=== PATIENT | male | born 2000 | race Caucasian/White ===

== ENCOUNTER 2021-02-05 11:47 | Emergency (ER) | payer OTHER, SELFPAY ==
--- NOTE | ~2021-02-05 | CT_ITS ---
EXAMINATION: CT ABDOMEN AND PELVIS WITH CONTRAST CLINICAL INFORMATION: Lower abdominal pain with urinary frequency. COMPARISON: CT abdomen and pelvis 03/17/2019. TECHNIQUE: Multidetector volumetric images were obtained from the superior aspect of the liver through the pubic symphysis following administration 85 mL of Omnipaque 350 intravenous contrast. Sagittal and coronal reformatted images were obtained on the technologist's workstation. Oral contrast: No This CT examination was performed using dose optimization techniques as appropriate, variously including the following: *Automated exposure control *Adjustment of mA and/or kV according to patient size (this includes techniques or standardized protocols for targeted exams where dose is matched to indication/reason for exam; i.e. extremities or head) *Use of iterative reconstruction technique DLP: 412 mGy-cm FINDINGS: LUNG BASES: The visualized lung bases are unremarkable. LIVER, GALLBLADDER, AND BILIARY TREE: The liver is normal in size, shape, and attenuation. No focal hepatic lesion or biliary ductal dilatation is present. The gallbladder is unremarkable with no evidence of radiopaque gallstones, gallbladder wall thickening, or obvious pericholecystic inflammatory changes. PANCREAS: Unremarkable. SPLEEN: Unremarkable. ADRENAL GLANDS: Unremarkable. KIDNEYS AND URETERS: The kidneys are normal in size, shape, and attenuation. No hydronephrosis, hydroureter, or calculi seen. No perinephric stranding. BLADDER: Unremarkable. GASTROINTESTINAL TRACT: There is large amount of stool seen throughout the entire colon consistent with significant constipation. There is no colonic or small bowel distention. Appendix is normal caliber. There is no free fluid or free air. ABDOMINAL WALL: No significant hernia is appreciated. LYMPH NODES: Normal. VASCULAR: Unremarkable. PELVIC VISCERA: No free air or free fluid seen. OSSEOUS STRUCTURES: Unremarkable. CT/CT abdomen pelvis w con IMPRESSION: No acute intra-abdominal process seen. Severe constipation. Normal appendix.
--- NOTE | ~2021-02-05 | US_ITS ---
EXAMINATION: US SCROTUM CLINICAL INFORMATION: Scrotal pain. Assess for torsion.. COMPARISON: CT abdomen and pelvis 02/05/2021 TECHNIQUE: A sonogram of the scrotum was performed assessing velez-scale appearance and color Doppler flow. Spectral Doppler analysis of the arterial and venous flow were performed in the testes bilaterally. FINDINGS: RIGHT: Right testicle measures 4.7 x 2.3 x 3.4 cm, volume 19.3 mL. No focal testicular parenchymal lesions are visualized. There is normal intratesticular color flow and low resistance waveform with presence of venous flow. No torsion. Right epididymal head is normal in size. There is trace fluid around the epididymal head. Otherwise, no hydrocele. No varicocele. Right epididymal Doppler flow is normal. LEFT: Left testicle measures 4.6 x 2.6 x 3.2 cm, volume 20.0 mL. No focal testicular parenchymal lesions are visualized. There is normal intratesticular color flow and low resistance waveform with presence of venous flow. No torsion. Left epididymal head is normal in size. No left hydrocele or varicocele is seen. Left epididymal Doppler flow is normal. US/US scrotum IMPRESSION: 1. No intratesticular mass or torsion. 2. Trace fluid near right epididymal head. No hyperemia. No overt hydrocele.
--- NOTE | ~2021-02-05 | US_ITS ---
EXAMINATION: US SCROTUM CLINICAL INFORMATION: Scrotal pain. Assess for torsion.. COMPARISON: CT abdomen and pelvis 02/05/2021 TECHNIQUE: A sonogram of the scrotum was performed assessing velez-scale appearance and color Doppler flow. Spectral Doppler analysis of the arterial and venous flow were performed in the testes bilaterally. FINDINGS: RIGHT: Right testicle measures 4.7 x 2.3 x 3.4 cm, volume 19.3 mL. No focal testicular parenchymal lesions are visualized. There is normal intratesticular color flow and low resistance waveform with presence of venous flow. No torsion. Right epididymal head is normal in size. There is trace fluid around the epididymal head. Otherwise, no hydrocele. No varicocele. Right epididymal Doppler flow is normal. LEFT: Left testicle measures 4.6 x 2.6 x 3.2 cm, volume 20.0 mL. No focal testicular parenchymal lesions are visualized. There is normal intratesticular color flow and low resistance waveform with presence of venous flow. No torsion. Left epididymal head is normal in size. No left hydrocele or varicocele is seen. Left epididymal Doppler flow is normal. US/US scrotum doppler IMPRESSION: 1. No intratesticular mass or torsion. 2. Trace fluid near right epididymal head. No hyperemia. No overt hydrocele.
[2021-02-05 11:58] VITALS: BP 128/54; PULSE 49; RESP 18; TEMP 36.7; O2SAT 99; BMI 24.3
[2021-02-05] MEDS: 0.9 % Sodium Chloride 1,000 ML 999 ML IVCONT (13:13)
[2021-02-05 13:18] LABS: MANUAL DIFF FLAG NO
[2021-02-05 13:19] LABS: Basophils Percent Auto 0.4 % (0-2); Eosinophils Absolute Auto 0.1 X10*3/uL (0.0-0.4); Eosinophils Percent Auto 0.9 % (0-4); Hematocrit 42.8 % (42-52); Hemoglobin 14.6 g/dl (14.0-18.0); Imm Gran Abs Auto 0.02 X10*3/uL (0.00-0.03); Imm Gran Pct Auto 0.3 % (0.0-0.4); Lymphocytes Absolute Auto 1.3 X10*3/uL (1.2-4.9); Mean Corpuscular HGB Conc 34.1 g/dl (31.0-36.0); Mean Corpuscular Hemoglobin 29.3 pg (27.0-33.0); Mean Corpuscular Volume 85.8 fL (80-98); Mean Platelet Volume 9.2 fL (9.4-12.4); Monocytes Absolute Auto 0.6 X10*3/uL (0.1-1.2); Monocytes Percent Auto 7.3 % (2-11); Neutrophils Absolute Auto 5.8 X10*3/uL (2.0-8.3); Neutrophils Percent Auto 74.1 % (45-73); Platelet Count 266 X10*3/uL (160-400); Red Blood Count 4.99 X10*6/uL (4.60-5.80); Red Cell Distribution Width 12.6 % (11.0-16.0); White Blood Count 7.8 X10*3/uL (4.8-10.8)
[2021-02-05 13:25] LABS: INTERNATIONAL NORM RATIO 1.1 (0.9-1.1); Prothrombin Time 12.5 SEC (9.9-13.0)
[2021-02-05 13:26] LABS: Appearance Urine CLEAR; Color Urine YELLOW; Glucose Urine UA NEG (NEG); Leukocyte Esterase Urine NEG (NEG); Nitrite Urine NEG (NEG); Urine Blood NEG (NEG); Urine Ketones NEG (NEG); Urine Protein NEG (NEG-TRACE)
[2021-02-05 13:39] LABS: Influenza A PCR NEGATIVE (Negative); Influenza B PCR NEGATIVE (Negative); Resp Syncy Virus RNA Qual PCR NEGATIVE (Negative); SARS COV2 PCR INHOUSE NEGATIVE (Negative)
[2021-02-05 13:46] LABS: Alanine Aminotransferase 20 U/L (0-40); Albumin Level 5.1 g/dL (3.5-5.0); Alkaline Phosphatase 67 U/L (39-117); Anion Gap 12 (12-20); Aspartate Amino Transferase 21 U/L (5-37); Bilirubin Total 2.5 mg/dL (0.0-1.0); Blood Urea Nitrogen 14 mg/dL (9-16); Carbon Dioxide 28 mmol/L (22-29); Chloride 102 mmol/L (96-108); Creatinine Clr Calc Pharmacy 90.4; Estimated Glomerular Filt Rate > 60; Glucose Random 95 mg/dL (60-115); Magnesium 2.1 mg/dL (1.6-2.6); Potassium 4.3 mmol/L (3.3-5.1); Sodium 138 mmol/L (135-145)
[2021-02-05] MEDS: iohexoL 350 MG/ML 100 ML INFUS..BTL IV (13:59)
[2021-02-05 14:00] VITALS: PULSE 69; RESP 19; TEMP 36.7; O2SAT 99
--- NOTE | 2021-02-05 15:33 | ED_ITS ---
HPI - Male Genitourinary General Chief complaint: Urogenital-Male Stated complaint: urinary problem Time Seen by Provider: 02/05/21 12:35 Source: patient Mode of arrival: ambulatory Limitations: no limitations History of Present Illness HPI Narrative: 20-year-old male with no significant past medical history present ing with his mother at bedside who is the RN here in the ER with complaints of increased urinary frequency/urgency with pressure sensation/bladder spasming for the past week although improving per the patient. He reports he feels pressure in the prostate/colon area. He reports he thinks he had 1 episode of hematuria although has resolved. He reports that this pressure/pain is so intense when it comes on that he has been unable to go to his classes. He gets associated diaphoresis when the pressure is there. His mother flew him back out from [place] to be further evaluated as he was seen in his college by the Urgent Care and only had a UA which was negative and gonorrhea chlamydia swab which was negative per the patient and mother. He denies any thoughts of STDs. Mother also reports that he started with a dry cough. Requesting to be tested for COVID. Patient denies any fevers, chills, dizziness, headaches, neck pain, chest pain or shortness of breath, back pain, diarrhea, dysuria, abnormal penile discharge, rashes, penile lesions or any other symptoms complaints or concerns at this time. Denies any sick contacts that he is aware of. Mother is significant for breast cancer in remission. Grandfather also had a cancer. Related Data Previous Rx's Medication Instructions Recorded docusate sodium 100 mg capsule 100 mg PO BID PRN #30 cap 02/05/21 (Colace) sennosides 8.6 mg tablet (Senna 8.6 mg PO BID PRN #30 tab 02/05/21 Laxative) Allergies Allergy/AdvReac Type Severity Reaction Status Date / Time No Known Allergies Allergy Verified 02/05/21 11:57 [No Known Allergies*] Review of Systems Review of Systems: Constitutional : No Weight loss, No Fever, No Chills, No Night Sweats, No Fatigue, NoMalaise ENT/Mouth: No ear pain, No sore throat, No Difficulty swallowing Cardiovascular : No Chest Pain, No SOB, No Dyspnea on Exertion, No Orthopnea, NoEdema, No Palpitations Respiratory : No Cough, No Sputum, No Wheezing, No Dyspnea Gastrointestinal : Positive abdominal pain, No Nausea, No Vomiting, No Diarrhea, No blood streaked emesis, No coffee-ground emesis, No gross he matemesis, No blood streak stool, No gross hematochezia, No Melena Genitourinary :Positive urinary frequency/urgency and 1 episode of hematuria, No irregular bleeding, No Dysuria, No Urinary Incontinence, No Flank Pain Musculoskeletal : No joint pain, No Myalgias, No Joint Swelling Skin : No Skin Lesions, No rash Neuro : No Weakness, No Numbness, No Paresthesias, No Loss of Consciousness, NoDizziness, No Headache Psych : No Social Issues, Heme/Lymph: No Bruising, No Bleeding,No Lymphadenopathy Endocrine : No Polyuria, No Polydipsia, No Temperature Intolerance Yes all other systems are reviewed and are negative [facility] Past Medical History Attestation statement: The following information was validated with the patient. Medical History Acute gastroenteritis Social History Social History Advance Directives: No Advance Directives Information Provided: No Physical Exam Vital Signs: Vital Signs: Last Vital Signs Temp 98.0 F 02/05/21 14:00 Pulse 69 02/05/21 14:00 Resp 19 02/05/21 14:00 BP 128/54 L 02/05/21 11:58 Pulse Ox 99 02/05/21 14:00 Body Mass Index 24.3 vital signs have been reviewed as normal and appeared to be correct. Blood pressure hypotensive at 120/54. Heart rate bradycardic at 49. Respiration rate normal. Temperature normal. Oxygen saturation normal. Appearance: Alert. Oriented X3. No acute distress. Head: Normal external exam. Normocephalic. Eyes: PERRLA. EOMI. Conjunctiva and sclera normal. Eyelids normal. ENT: Pharynx normal. Uvula midline. Moist mucous membranes. Neck: Normal inspection. Neck supple. FROM. No adenopathy. No meningeal signs. CVS: Normal heart rate and rhythm. Heart sound normal. No murmurs noted. Pulses normal throughout. Respiratory: No respiratory distress. Painless inspiration. Breath sounds normal. No wheezes/rales/rhonchi noted. Chest nontender. No accessory muscle usage noted or decreased air movement noted. Abdomen: Soft and mild tenderness up patient to suprapubic area. Nondistended. No guarding. No rigidity. Bowel sounds normal in all 4 quadrants. No distention noted. No organomegaly noted. No visible injury noted. No rebound tenderness. Negative Rovsing sign. Negative obturator's sign. Negative psoas sign. Negative Sullivan sign. Back: No CVA tenderness. Full range of motion noted. Skin: Skin warm and dry. Normal skin color. Normal skin turgor. No rashes/lesions/lacerations noted. Extremities: Extremities exhibit normal range of motion. Extremities nontender. Neuro: Oriented X 3. No motor deficit. No sensory deficit. Reflexes normal. Normal steady gait. Course Course Course Narrative: 20-year-old male with no significant past medical history presenting with his mother at bedside who is the RN here in the ER with complaints of increased urinary frequency/urgency with pressure sensation/bladder spasming for the past week although improving per the patient. He reports he feels pressure in the prostate/colon area. He reports he thinks he had 1 episode of hematuria although has resolved. He reports that this pressure/pain is so intense when it comes on that he has been unable to go to his classes. He gets associated diaphoresis when the pressure is there. His mother flew him back out from [place] to be further evaluated as he was seen in his college by the Urgent Care and only had a UA which was negative and gonorrhea chlamydia swab which was negative per the patient and mother. He denies any thoughts of STDs. Mother also reports that he started with a dry cough. Requesting to be tested for COVID. Labs obtained and patient noted to have an elevated total bilirubin at 2.5 and it appears that the patient has had this chronically since 2019. Albumin 5.1. Otherwise all other labs are within normal limits. UA within normal limits. Patient negative for COVID/RSV/flu. I added a hepatitis panel which is pending at this time patient will need to be called back with these results. Ultrasound revealed trace fluid near right epididymal head otherwise no other acute processes were noted. CT scan abdomen and pelvis with IV contrast reveals severe constipation and a normal appendix otherwise no other acute processes. Therefore will DC home with symptomatic treatment for constipation along with instructions return if any new or worsening some and follow-up with primary care provider. Patient and mother at bedside understand and agree this plan. MDM - Male Genitourinary Medical Records Attestation: I reviewed the patient's medical records. Lab Data Attestation: I reviewed the patient's lab results. Result diagrams: 02/05/21 13:08 02/05/21 13:08 Labs: Lab Results 02/05/21 02/05/21 02/05/21 Range/Units 12:46 13:08 13:08 WBC 7.8 (4.8-10.8) X10*3/uL RBC 4.99 (4.60-5.80) X10*6/uL Hgb 14.6 (14.0-18.0) g/dl Hct 42.8 (42-52) % MCV 85.8 (80-98) fL MCH 29.3 (27.0-33.0) pg MCHC 34.1 (31.0-36.0) g/dl RDW 12.6 (11.0-16.0) % Plt Count 266 (160-400) X10*3/uL MPV 9.2 L (9.4-12.4) fL Immature Gran % (Auto) 0.3 (0.0-0.4) % Neut % (Auto) 74.1 H (45-73) % Lymph % (Auto) 17.0 L (20-40) % [place] % (Auto) 7.3 (2-11) % Eos % (Auto) 0.9 (0-4) % Baso % (Auto) 0.4 (0-2) % Lymph # (Auto) 1.3 (1.2-4.9) X10*3/uL [place] # (Auto) 0.6 (0.1-1.2) X10*3/uL Eos # (Auto) 0.1 (0.0-0.4) X10*3/uL Baso # (Auto) 0.0 (0.0-0.2) X10*3/uL Abs Immat Gran (auto) 0.02 (0.00-0.03) X10*3/uL Absolute Neuts (auto) 5.8 (2.0-8.3) X10*3/uL Absolute Nucleated RBC 0.000 (0.0-0.012) X10*3/uL Nucleated RBC % (auto) 0.0 (0.0-0.2) /100WBC PT 12.5 (9.9-13.0) SEC INR 1.1 (0.9-1.1) Sodium (135-145) mmol/L Potassium (3.3-5.1) mmol/L Chloride (96-108) mmol/L Carbon Dioxide (22-29) mmol/L Anion Gap (12-20) BUN (9-16) mg/dL Creatinine (0.5-1.4) mg/dL Estim Creat Clear Calc Estimated GFR Random Glucose (60-115) mg/dL Calcium (8.4-10.2) mg/dL Magnesium (1.6-2.6) mg/dL Total Bilirubin (0.0-1.0) mg/dL AST (5-37) U/L ALT (0-40) U/L Alkaline Phosphatase (39-117) U/L Total Protein (6.5-8.0) g/dL Albumin (3.5-5.0) g/dL Urine Color Urine Appearance Urine pH (5.0-8.0) Ur Specific Girdler (1.005-1.025) Urine Protein (NEG-TRACE) MG/DL Urine Glucose (UA) (NEG) MG/DL Urine Ketones (NEG) MG/DL Urine Blood (NEG) Urine Nitrite (NEG) Ur Leukocyte Esterase (NEG) Coronavirus (PCR) NEGATIVE (Negative) Influenza Type A (PCR) NEGATIVE (Negative) Influenza Type B (PCR) NEGATIVE (Negative) RSV RNA Qual (PCR) NEGATIVE (Negative) 02/05/21 02/05/21 Range/Units 13:08 13:10 WBC (4.8-10.8) X10*3/uL RBC (4.60-5.80) X10*6/uL Hgb (14.0-18.0) g/dl Hct (42-52) % MCV (80-98) fL MCH (27.0-33.0) pg MCHC (31.0-36.0) g/dl RDW (11.0-16.0) % Plt Count (160-400) X10*3/uL MPV (9.4-12.4) fL Immature Gran % (Auto) (0.0-0.4) % Neut % (Auto) (45-73) % Lymph % (Auto) (20-40) % [place] % (Auto) (2-11) % Eos % (Auto) (0-4) % Baso % (Auto) (0-2) % Lymph # (Auto) (1.2-4.9) X10*3/uL [place] # (Auto) (0.1-1.2) X10*3/uL Eos # (Auto) (0.0-0.4) X10*3/uL Baso # (Auto) (0.0-0.2) X10*3/uL Abs Immat Gran (auto) (0.00-0.03) X10*3/uL Absolute Neuts (auto) (2.0-8.3) X10*3/uL Absolute Nucleated RBC (0.0-0.012) X10*3/uL Nucleated RBC % (auto) (0.0-0.2) /100WBC PT (9.9-13.0) SEC INR (0.9-1.1) Sodium 138 (135-145) mmol/L Potassium 4.3 (3.3-5.1) mmol/L Chloride 102 (96-108) mmol/L Carbon Dioxide 28 (22-29) mmol/L Anion Gap 12 (12-20) BUN 14 (9-16) mg/dL Creatinine 1.25 (0.5-1.4) mg/dL Estim Creat Clear Calc 90.4 Estimated GFR > 60 Random Glucose 95 (60-115) mg/dL Calcium 10.0 (8.4-10.2) mg/dL Magnesium 2.1 (1.6-2.6) mg/dL Total Bilirubin 2.5 H (0.0-1.0) mg/dL AST 21 (5-37) U/L ALT 20 (0-40) U/L Alkaline Phosphatase 67 (39-117) U/L Total Protein 8.0 (6.5-8.0) g/dL Albumin 5.1 H (3.5-5.0) g/dL Urine Color YELLOW Urine Appearance CLEAR Urine pH 6.0 (5.0-8.0) Ur Specific Girdler 1.020 (1.005-1.025) Urine Protein NEG (NEG-TRACE) MG/DL Urine Glucose (UA) NEG (NEG) MG/DL Urine Ketones NEG (NEG) MG/DL Urine Blood NEG (NEG) Urine Nitrite NEG (NEG) Ur Leukocyte Esterase NEG (NEG) Coronavirus (PCR) (Negative) Influenza Type A (PCR) (Negative) Influenza Type B (PCR) (Negative) RSV RNA Qual (PCR) (Negative) Imaging Data CT scan abdomen pelvis with IV contrast: Attestation: I personally reviewed and interpreted this imaging study as follows: Radiologist's impression: FINDINGS: LUNG BASES: The visualized lung bases are unremarkable.? LIVER, GALLBLADDER, AND BILIARY TREE: The liver is normal in size, shape, and attenuation. No focal hepatic lesion or biliary ductal dilatation is present. The gallbladder is unremarkable with no evidence of radiopaque gallstones, gallbladder wall thickening, or obvious pericholecystic inflammatory changes.? PANCREAS: Unremarkable.? SPLEEN: Unremarkable.? ADRENAL GLANDS: Unremarkable.? KIDNEYS AND URETERS: The kidneys are normal in size, shape, and attenuation. No hydronephrosis, hydroureter, or calculi seen. No perinephric stranding. ? BLADDER: Unremarkable.? GASTROINTESTINAL TRACT: There is large amount of stool seen throughout the entire colon consistent with significant constipation. There is no colonic or small bowel distention. Appendix is normal caliber. There is no free fluid or free air.? ABDOMINAL WALL: No significant hernia is appreciated.? LYMPH NODES: Normal. VASCULAR: Unremarkable. PELVIC VISCERA: No free air or free fluid seen.? OSSEOUS STRUCTURES: Unremarkable.? CT/CT abdomen pelvis w con IMPRESSION: No acute intra-abdominal process seen. ? Severe constipation. Normal appendix.? Scrotal/Doppler ultrasound: Attestation: I personally reviewed and interpreted this imaging study as follows: Radiologist's impression: FINDINGS: RIGHT: Right testicle measures 4.7 x 2.3 x 3.4 cm, volume 19.3 mL. No focal testicular parenchymal lesions are visualized. There is normal intratesticular color flow and low resistance waveform with presence of venous flow. No torsion. Right epididymal head is normal in size. There is trace fluid around the epididymal head. Otherwise, no hydrocele. No varicocele. Right epididymal Doppler flow is normal. LEFT: Left testicle measures 4.6 x 2.6 x 3.2 cm, volume 20.0 mL. No focal testicular parenchymal lesions are visualized. There is normal intratesticular color flow and low resistance waveform with presence of venous flow. No torsion. Left epididymal head is normal in size. No left hydrocele or varicocele is seen. Left epididymal Doppler flow is normal. US/US scrotum doppler IMPRESSION: ? 1. No intratesticular mass or torsion. 2. Trace fluid near right epididymal head. No hyperemia. No overt hydrocele. Critical Care Time Critical Care Time Critical Care Time: Yes Total Critical Care Time: 60 Attestation: I personally attest to this time spent taking care of the patient Discharge Plan Discharge Clinical Impression: Constipation Patient Disposition: Home, Self-Care Instructions: Constipation (ED) Prescriptions: New docusate sodium [Colace] 100 mg capsule 100 mg PO BID PRN (Reason: Constipation) Qty: 30 RF: 0 sennosides [Senna Laxative] 8.6 mg tablet 8.6 mg PO BID PRN (Reason: constipation) Qty: 30 RF: 0 Referrals: Juan Jose Parker MD [Primary Care Provider] - 2 days Riley Samson MD [Physician] - 2 days Hiram Oscar III, MD [Physician] - 2 days Stand Alone Forms: Work/School Release Interventions: ED Discharge Assessment Last Done: 02/05/21 15:43 Discharge Date/Time: 02/05/21 15:44 Print Language: Norwegian
[2021-02-05] MEDS: Magnesium Citrate 300 ML SOLUTION PO (15:35)
[2021-02-06 07:58] LABS: HBc Num1 0.09 S/CO (0.00-0.79); HBsAGNum1 0.28 S/CO (0.00-0.99); Hepatitis B Core Antibody Nonreactive (Nonreactive); Hepatitis B Surface Antigen Negative (Negative); ~Hepatitis B Surface Antibody REACTIVE (Nonreactive)
[2021-02-06 08:02] LABS: ~HepC Num1 0.11 S/CO (0.00-0.79); ~Hepatitis A Antibody IgM Nonreactive (Nonreactive); ~Hepatitis C Antibody Nonreactive (Nonreactive)
== END 2021-02-05 15:44 | disposition home or self-care (01) ==
PROVIDERS: Physician Assistant Medical; Emergency Provider Emergency Medicine; PCP Pediatrics
DX: K59.00 Constipation, unspecified (principal); R35.0 Frequency of micturition; R10.2 Pelvic and perineal pain; Z20.822 Contact with and (suspected) exposure to COVID-19; Z79.899 Other long term (current) drug therapy
CPT/HCPCS: 0241U; 36415; 74177; 76870; 80053; 81003; 83735; 85025; 85610; 86704; 86706; 86709; 86803; 87340; 93975; 96360; 99284; 99291; Q9967

== ENCOUNTER 2022-04-13 19:13 | Emergency (ER) | payer OTHER, SELFPAY ==
--- NOTE | 2022-04-13 19:22 | ED_ITS ---
HPI - General Adult General Chief complaint: Urogenital-Male Stated complaint: unable to urinate Time Seen by Provider: 04/13/22 20:26 Source: patient and family (patient's mother) Mode of arrival: ambulatory Limitations: no limitations History of Present Illness HPI narrative: Patient is a 22 year old assigned male at with no reported medical history presenting to the emergency department today with urinary complaints. Patient states that he has been dealing with this issue on and off for years now and has yet to be able to get into a urologist. Patient states that when he hasn't had a bowel movement in awhile, he struggles to urinate fully. Patient states he will then have a bowel movement and be able to urinate but sometimes, even after the bowel movement, he cannot urinate. Patient states that more often than not, when he urinates, he still feels as though he needs to go even though he just went. Patient states that he constantly feels as though he has to push to urinate. Patient states that he was evaluated for this before and told that he had prostatitis and ibuprofen seems to resolve some of the inflammation type pain. Patient denies any dizziness, lightheadedness, abdominal pain, nausea, vomiting, fever, chills, blurry vision, double vision, loss of vision, chest pain, difficulty breathing, shortness of breath, back pain, night sweats, pain with urination, increased urinary frequency, increased urinary urgency, blood in his urine or stool, syncope or a near syncopal episode, recent trauma or falls, bowel incontinence, bladder incontinence, bowel retention, bladder retention, or any other complaints at this time. Onset (ago): year(s) Radiation: non-radiation Severity: mild Severity scale (1-10): 3 Quality: dull Pain Consistency: intermittent Relieving factors: none Exacerbating factors: none Associated symptoms: denies other symptoms Treatments prior to arrival: none Related Data Previous Rx's Medication Instructions Recorded docusate sodium 100 mg capsule 100 mg PO BID PRN Constipation #30 02/05/21 (Colace) caps sennosides 8.6 mg tablet (Senna 8.6 mg PO BID PRN constipation #30 02/05/21 Laxative) tabs ketorolac 10 mg tablet 10 mg PO Q8H PRN pain #30 tabs 04/13/22 oxybutynin chloride 5 mg 5 mg PO DAILY #30 tabs 04/13/22 tablet,extended release 24 hr Allergies Allergy/AdvReac Type Severity Reaction Status Date / Time No Known Allergies Allergy Verified 02/05/21 11:57 [No Known Allergies*] Review of Systems Constitutional: Constitutional: Reports no additional constitutional complaints, Denies chills, Denies fever(s) and Denies night sweats Eyes: Eyes: Reports no additional eye complaints, Denies blurry vision, Denies change in vision, Denies diplopia, Denies eye discharge, Denies loss of vision and Denies eye pain ENT: Denies dizziness Cardiovascular: Cardiovascular: Reports no additional cardiovascular complaints, Denies chest pain, Denies lightheadedness, Denies Loss of Consciousness and Denies dyspnea Respiratory: Respiratory: Reports no additional respiratory complaints and Denies dyspnea Gastrointestinal: Gastrointestinal: Reports no additional gastrointestinal complaints, Denies abdominal pain, Denies melena, Denies hematochezia, Denies change in bowel habits and Denies change in stool character Genitourinary: Genitourinary: Reports no additional male genitourinary complaints, Denies hematuria, Reports oliguria, Denies difficulty urinating, Denies dysuria, Reports urinary frequency, Denies urinary hesitancy, Denies urinary incontinence and Reports urinary urgency Musculoskeletal: Musculoskeletal: Reports no additional musculoskeletal complaints, Denies numbness and Denies tingling Neurologic: Denies dizziness, Denies loss of vision, Denies numbness and Denies tingling Psychiatric: Psychiatric: Reports no additional psychiatric complaints Endocrine: Endocrine: Reports no additional endocrine complaints Hematologic/Lymphatic: Hematologic/Lymphatic: Reports no additional hematologic/lymphatic complaints Allergic/Immunologic: Allergic/Immunologic: Reports no additional allergic/immunologic complaints [facility] Past Medical History Attestation statement: The following information was validated with the patient. Source: old records reviewed, obtained from family (patient's mother) and nursing notes reviewed Medical History Acute gastroenteritis Social History Social History Smoked in Last 30 Days: Yes Use of substances other than those prescribed or required for medical reasons: Yes Substance Use Type: Marijuana Advance Directives: No Advance Directives Information Provided: No Physical Exam ED Vital Signs: Vital Signs - 24 hr 04/13/22 19:23 04/13/22 20:07 Temperature 98.7 F Pulse Rate 60 50 Respiratory Rate 20 16 Blood Pressure 134/70 115/64 Pulse Oximetry 97 Oxygen Delivery Method Room Air Room Air BMI result Body Mass Index 24.5 Const General: cooperative, no acute distress, alert and awake Nutritional Appearance: well nourished Orientation/consciousness: patient oriented x3 Limitations: no limitations HENMT Head: Yes normal to inspection and Yes atraumatic Ears: hearing grossly normal bilaterally and external ears normal General nose exam: Normal external nose present, no nasal discharge noted and no epistaxis Face and sinus: Yes normal facial exam, No abrasion and No laceration Mouth: Normal oral and palatal mucosa present, no drooling and no muffled voice Eyes General: appearance normal, both eyes and all related structures Periorbital: periorbital findings normal Eyelids: Yes eyelids normal Conjunctivae: conjunctivae normal Pupils: Equal, round and reactive pupils present EOM: EOMs intact bilaterally Neck Neck: Yes normal visual inspection, Yes full ROM and Yes no lymphadenopathy Chest Chest palpation & inspection: normal inspection of the chest Resp Effort & Inspection: normal respiratory effort and able to speak in complete sentences Auscultation: clear to auscultation bilaterally Cardio Rate: regular rate Rhythm: regular rhythm GI Inspection: Yes normal to inspection Palpation (GI): Soft to palpation, not firm, nontender, no guarding and not rigid Neuro General: patient oriented x3 and moves all extremities Cranial nerves: Yes Equal, round and reactive pupils present Cognition (Neuro): normal cognition Motor exam (neuro): 5/5 motor strength present throughout Sensory Exam: Normal double simultaneous stimulation for sensation Coordination: [id number] test normal Extrem General: Yes normal to inspection, Yes full ROM and Yes capillary refill normal Psych Appearance: grossly normal Mental Status: mental status grossly normal Affect: normal affect Attitude: cooperative Thought process: Normal thought process present Thought content: Normal thought content present Insight: Good insight present (Psych) Medications Administered Discontinued Medications Generic Name Dose Route Start Last Admin Trade Name Freq PRN Reason Stop Dose Admin Ketorolac Tromethamine 15 mg 04/13/22 20:23 04/13/22 20:29 Ketorolac Tromethamine 15 Mg/Ml Vial IM 04/13/22 20:24 15 mg ONCE ONE Administration Oxybutynin Chloride 5 mg 04/13/22 20:23 12/18/22 20:29 Oxybutynin Chloride Er 5 Mg Tab.Er.24 PO 04/13/22 20:24 5 mg ONCE ONE Administration Medical Decision Making Medical Decision Making [facility] Narrative: Patient is a 22 year old assigned male at with no reported medical history presenting to the emergency department today with increased urinary urgency and increased urinary urgency. Patient's physical exam was unremarkable. Patient's blood work was unremarkable. Patient's urine showed no acute process. Patient's post void bladder scan showed 0ml. I explained my physical exam find ings as well as all test results to the patient and the patient's mother. I answered all questions asked by the patient and the patient's mother. Patient received oxybutynin and Toradol which he stated helped his discomfort significantly. I stressed the importance of the patient taking his medication as prescribed. I stressed the importance of the patient following up with his primary care provider and a urologist. I stressed the importance of the patient returning to the emergency department immediately if his symptoms were to worsen or if he were to develop any dizziness, shortness of breath, difficulty breathing, chest pain, blurry vision, loss of vision, nausea, vomiting, abdominal pain, fever, chills, back pain, or any other complaints. Patient and the patient's mother verbalized agreement and understanding with this treatment plan and discharge. Differential Diagnosis Differential Diagnoses: The differential diagnosis associated with the presentation includes bladder spasms, prostatitis Lab Data [facility] Lab Attestation statement: I reviewed the patient's lab results. Result Diagrams: 04/13/22 19:41 04/13/22 19:41 Labs: Lab Results 04/13/22 04/13/22 04/13/22 Range/Units 19:41 19:41 19:41 WBC 9.9 (4.8-10.8) X10*3/uL RBC 5.00 (4.60-5.80) X10*6/uL Hgb 14.1 (14.0-18.0) g/dl Hct 41.5 L (42.0-52.0) % MCV 83.0 (80.0-98.0) fL MCH 28.2 (27.0-33.0) pg MCHC 34.0 (31.0-36.0) g/dl RDW 12.6 (11.0-16.0) % Plt Count 311 (160-400) X10*3/uL MPV 8.9 L (9.4-12.4) fL Immature Gran % (Auto) 0.3 (0.0-0.4) % Neut % (Auto) 71.0 (45-73) % Lymph % (Auto) 20.4 (20-40) % [place] % (Auto) 6.6 (2-11) % Eos % (Auto) 1.0 (0-4) % Baso % (Auto) 0.7 (0-2) % Lymph # (Auto) 2.0 (1.2-4.9) X10*3/uL [place] # (Auto) 0.7 (0.1-1.2) X10*3/uL Eos # (Auto) 0.1 (0.0-0.4) X10*3/uL Baso # (Auto) 0.1 (0.0-0.2) X10*3/uL Abs Immat Gran (auto) 0.03 (0.00-0.03) X10*3/uL Absolute Neuts (auto) 7.0 (2.0-8.3) x10*3/uL Absolute Nucleated RBC 0.000 (0.0-0.012) X10*3/uL Nucleated RBC % (auto) 0.0 (0.0-0.2) /100WBC Sodium 137 (135-145) mmol/L Potassium 4.0 (3.3-5.1) mmol/L Chloride 104 (96-108) mmol/L Carbon Dioxide 24 (22-29) mmol/L Anion Gap 13 (12-20) BUN 13 (9-16) mg/dL Creatinine 1.02 (0.5-1.4) mg/dL Estim Creat Clear Calc 108.9 Estimated GFR > 60 Random Glucose 109 (60-115) mg/dL Calcium 9.4 (8.4-10.2) mg/dL Total Bilirubin 2.6 H (0.0-1.0) mg/dL AST 20 (5-37) U/L ALT 18 (0-40) U/L Alkaline Phosphatase 70 (39-117) U/L Total Protein 7.3 (6.5-8.0) g/dL Albumin 4.5 (3.5-5.0) g/dL Urine Color Yellow Urine Appearance Clear Urine pH 7.0 (5.0-9.0) Ur Specific [place] 1.025 (1.005-1.025) Urine Protein Negative (Neg-Trace) mg/dL Urine Glucose (UA) Negative (Negative) mg/dL Urine Ketones Negative (Negative) mg/dL Urine Blood Negative (Negative) Urine Nitrite Negative (Negative) Ur Leukocyte Esterase Negative (Negative) Discharge Plan Discharge Clinical Impression: Bladder spasm Patient Disposition: Home, Self-Care Additional Instructions: Follow up with your primary care provider and a urologist. Return to the emergency department immediately if your symptoms worsen or if you develop any dizziness, shortness of breath, difficulty breathing, chest pain, blurry vision, loss of vision, nausea, vomiting, abdominal pain, fever, chills, back pain, or any other complaints. Prescriptions: New oxybutynin chloride 5 mg tablet extended release 24hr 5 mg PO DAILY Qty: 30 0RF ketorolac 10 mg tablet 10 mg PO Q8H PRN (Reason: pain) Qty: 30 0RF No Action docusate sodium [Colace] 100 mg capsule 100 mg PO BID PRN (Reason: Constipation) Qty: 30 0RF sennosides [Senna Laxative] 8.6 mg tablet 8.6 mg PO BID PRN (Reason: constipation) Qty: 30 0RF Referrals: [facility] [place] [facility] [place] Group] (Call to establish and follow up with a primary care provider. If you already have a primary care provider, please follow up with them. ) [facility] [place] [facility] [[facility]] (Call to establish and follow up with a primary care provider. If you already have a primary care provider, please follow up with them. ) [facility] [place] [facility] [Provider Group] (Call to establish and follow up with a primary care provider. If you already have a primary care provider, please follow up with them. ) [facility] [place] [facility] [Provider Group] (Call to establish and follow up with a urologist. ) Interventions: ED Discharge Assessment Last Done: 04/13/22 20:36 Discharge Date/Time: 04/13/22 20:36 Print Language: Yi
[2022-04-13 19:23] VITALS: BP 134/70; PULSE 60; RESP 20; BMI 24.5
[2022-04-13 19:46] LABS: MANUAL DIFF FLAG NO
[2022-04-13 19:47] LABS: Basophils Absolute Auto 0.1 X10*3/uL (0.0-0.2); Basophils Percent Auto 0.7 % (0-2); Eosinophils Absolute Auto 0.1 X10*3/uL (0.0-0.4); Hematocrit 41.5 % (42.0-52.0); Hemoglobin 14.1 g/dl (14.0-18.0); Imm Gran Abs Auto 0.03 X10*3/uL (0.00-0.03); Imm Gran Pct Auto 0.3 % (0.0-0.4); Lymphocytes Percent Auto 20.4 % (20-40); Mean Corpuscular Hemoglobin 28.2 pg (27.0-33.0); Mean Platelet Volume 8.9 fL (9.4-12.4); Monocytes Absolute Auto 0.7 X10*3/uL (0.1-1.2); Monocytes Percent Auto 6.6 % (2-11); Platelet Count 311 X10*3/uL (160-400); Red Cell Distribution Width 12.6 % (11.0-16.0); White Blood Count 9.9 X10*3/uL (4.8-10.8)
[2022-04-13 19:49] LABS: Appearance Urine Clear; Color Urine Yellow; Glucose Urine UA Negative (Negative); Leukocyte Esterase Urine Negative (Negative); Nitrite Urine Negative (Negative); Specific Gravity - Urine 1.025 (1.005-1.025); Urine Blood Negative (Negative); Urine Ketones Negative (Negative); Urine Protein Negative (Neg-Trace)
[2022-04-13 20:02] LABS: Alanine Aminotransferase 18 U/L (0-40); Albumin Level 4.5 g/dL (3.5-5.0); Alkaline Phosphatase 70 U/L (39-117); Anion Gap 13 (12-20); Aspartate Amino Transferase 20 U/L (5-37); Bilirubin Total 2.6 mg/dL (0.0-1.0); Blood Urea Nitrogen 13 mg/dL (9-16); Calcium 9.4 mg/dL (8.4-10.2); Carbon Dioxide 24 mmol/L (22-29); Chloride 104 mmol/L (96-108); Creatinine Clr Calc Pharmacy 108.9; Estimated Glomerular Filt Rate > 60; Glucose Random 109 mg/dL (60-115); Sodium 137 mmol/L (135-145); Total Protein 7.3 g/dL (6.5-8.0)
[2022-04-13 20:07] VITALS: BP 115/64; PULSE 50; RESP 16; TEMP 37.1; O2SAT 97
[2022-04-13] MEDS: Ketorolac Tromethamine 15 MG/ML VIAL IM (20:29)
== END 2022-04-13 20:36 | disposition home or self-care (01) ==
PROVIDERS: Physician Assistant Medical; Emergency Provider Emergency Medicine; PCP Pediatrics
DX: R33.9 Retention of urine, unspecified (principal); N32.89 Other specified disorders of bladder; Z79.899 Other long term (current) drug therapy
CPT/HCPCS: 36415; 80053; 81003; 85025; 99284; J1885

== ENCOUNTER 2022-09-15 03:48 | Emergency (ER) | payer OTHER, SELFPAY ==
--- NOTE | ~2022-09-15 | CT_ITS ---
EXAMINATION: CT ABDOMEN AND PELVIS WITH CONTRAST CLINICAL INFORMATION: Suprapubic pain COMPARISON: 02/05/2021 TECHNIQUE: Multidetector volumetric images were obtained from the superior aspect of the liver through the pubic symphysis following administration 85 mL of Omnipaque 350 intravenous contrast. Sagittal and coronal reformatted images were obtained on the technologist's workstation. Oral contrast: No This CT examination was performed using dose optimization techniques as appropriate, variously including the following: *Automated exposure control *Adjustment of mA and/or kV according to patient size (this includes techniques or standardized protocols for targeted exams where dose is matched to indication/reason for exam; i.e. extremities or head) *Use of iterative reconstruction technique DLP: 377 mGy-cm FINDINGS: LUNG BASES: The visualized lung bases are unremarkable. LIVER, GALLBLADDER, AND BILIARY TREE: The liver is normal in size, shape, and attenuation. No focal hepatic lesion or biliary ductal dilatation is present. The gallbladder is unremarkable with no evidence of radiopaque gallstones, gallbladder wall thickening, or obvious pericholecystic inflammatory changes. PANCREAS: Unremarkable. SPLEEN: Unremarkable. ADRENAL GLANDS: Unremarkable. KIDNEYS AND URETERS: The kidneys are normal in size, shape, and attenuation. No hydronephrosis, hydroureter, or calculi seen. No perinephric stranding. BLADDER: Unremarkable. GASTROINTESTINAL TRACT: The small and large bowel are unremarkable. The appendix is unremarkable. ABDOMINAL WALL: No significant hernia is appreciated. LYMPH NODES: Normal. VASCULAR: Unremarkable. PELVIC VISCERA: Unremarkable. OSSEOUS STRUCTURES: Unremarkable. CT/CT abdomen pelvis w IV con IMPRESSION: No significant abnormality.
--- NOTE | 2022-09-15 04:07 | ED_ITS ---
HPI - General Adult General Chief complaint: General Medical Stated complaint: IBS symptoms Time Seen by Provider: 09/15/22 04:12 Source: patient and family Mode of arrival: ambulatory Limitations: no limitations History of Present Illness HPI narrative: Patient comes to the emergency room accompanied by his mother. Patient is complaining of suprapubic pain, bladder spasms, intermittent for about a year. Patient states that he feels a constant pressure in the suprapubic area, up very bothersome, patient states that it bothers him enough to the point he has considered suicide. Patient states that this abdominal/suprapubic discomfort started after had very bad infection of gastroenteritis. Since then, patient has had ongoing symptoms. Patient denies dysuria. Patient has been trying to get Urology for possible cystoscopy. However, patient goes to school in [place] and he is unable to come back home to his appointments. Patient has not been seen by Gastroenterology. Patient has previously been treated with antibiotics for possible cystitis/prostatitis. Patient states that lately he has noticed th at he is urinating more at night. Related Data Previous Rx's Medication Instructions Recorded docusate sodium 100 mg capsule 100 mg PO BID PRN Constipation #30 02/05/21 (Colace) caps sennosides 8.6 mg tablet (Senna 8.6 mg PO BID PRN constipation #30 02/05/21 Laxative) tabs ketorolac 10 mg tablet 10 mg PO Q8H PRN pain #30 tabs 04/13/22 oxybutynin chloride 5 mg 5 mg PO DAILY #30 tabs 04/13/22 tablet,extended release 24 hr oxybutynin chloride 5 mg 5 mg PO DAILY #90 tabs 06/27/22 tablet,extended release 24 hr ciprofloxacin HCl 500 mg tablet 500 mg PO BID #20 tabs 07/02/22 (Cipro) tramadol 50 mg tablet 50 mg PO Q6H PRN pain #20 tabs 07/02/22 dicyclomine 20 mg tablet 20 mg PO QID 2 weeks #56 tabs 09/15/22 phenazopyridine 100 mg tablet 100 mg PO TID PRN pain #7 tabs 09/15/22 Allergies Allergy/AdvReac Type Severity Reaction Status Date / Time No Known Allergies Allergy Verified 02/05/21 11:57 [No Known Allergies*] Review of Systems Review of Systems: Constitutional : No Weight loss, No Fever, No Chills, No Night Sweats, No Fatigue, No Malaise ENT/Mouth : No Hearing loss, No Ear Pain, No Nasal Congestion, No Sinus Pain, No Hoarseness, No sore throat, No Rhinorrhea, No Swallowing Difficulty Eyes: No Eye Pain, No Swelling, No Redness, No Foreign Body, No Discharge, No Vision Changes Cardiovascular : No Chest Pain, No SOB, No Dyspnea on Exertion, No Orthopnea, No Edema, No Palpitations Respiratory : No Cough, No Sputum, No Wheezing, No Smoke Exposure, No Dyspnea Gastrointestinal : No Nausea, No Vomiting, No Diarrhea, No Constipation, No abdominal Pain, No Hematochezia, No Melena Genitourinary : Complaining of constant suprapubic pressure, bladder/prostate p ressure, nonradiating, No Dysuria, No Urinary Frequency, denies hematuria, complaining of nocturia Hesitancy Musculoskeletal : No joint pain, No Myalgias, No Joint Swelling Skin : No Skin Lesions, No rash Neuro : No Weakness, No Numbness, No Paresthesias, No Loss of Consciousness, No Dizziness, No Headache Psych : No Anxiety/Panic, No Depression, No SI/HI/AH/VH, No Social Issues, Heme/Lymph: No Bruising, No Bleeding,No Lymphadenopathy Endocrine : No Polyuria, No Polydipsia, No Temperature Intolerance [facility] Past Medical History Medical History Acute gastroenteritis Social History Social History Alcohol intake: current Alcohol intake frequency: a few times a month Smoked in Last 30 Days: Yes Use of substances other than those prescribed or required for medical reasons: Yes Substance Use Type: Marijuana Substance Use Frequency: Daily Advance Directives: No Advance Directives Information Provided: No Physical Exam ED Vital Signs: Vital Signs - 24 hr 09/15/22 04:17 09/15/22 04:22 Temperature 97.9 F 97.9 F Pulse Rate 52 52 Respiratory Rate 16 16 Blood Pressure 130/72 130/72 Pulse Oximetry 98 98 Oxygen Delivery Method Room Air Room Air BMI result Body Mass Index 22.1 Const Other: Appearance: Alert. Oriented X3. No acute distress. Eyes: Pupils equal, round and reactive to light. ENT: Pharynx normal. Neck: Normal inspection. Neck supple. No lymph nodes noted. No crepitus CVS: Normal heart rate and rhythm. Pulses normal. Normal S1 and S2 Respiratory: No respiratory distress. Breath sounds normal. No Wheezing. No rales Abdomen: Soft and nontender. No rigidity. No distention. Skin: Skin warm and dry. Normal skin color. Normal skin turgor. Extremities: No lower extremity edema. No Lacerations. No Rash Neuro: Oriented X 3. No motor deficit. No sensory deficit. Moving all extremities. No slurred speech. CN 2 through 12 grossly intact Psych: calm, cooperative, normal affect Course Course Course Narrative: -patient's labs and CT scan pending. Medications Administered Discontinued Medications Generic Name Dose Route Start Last Admin Trade Name Freq PRN Reason Stop Dose Admin Iohexol 85 ml 09/15/22 04:58 09/15/22 04:58 Iohexol 350 Mg/Ml 100 Ml Infus..Btl IV 09/15/22 04:59 85 ml ONCE ONE Administration Medical Decision Making Medical Decision Making [facility] Narrative: -patient's white blood cell count within normal limits -chemistry within normal limits, however, LFTs a chronically elevated, patient have Gilbert's syndrome, may be causing IBS like symptoms -urinalysis is negative -CT scan of the abdomen and pelvis with contrast does not show any significant abnormality. -I discussed with the patient and her mother the patient may need a cystoscopy if the systems persist. -patient is to follow-up with both Gastroenterology and Urology Lab Data 09/15/22 04:21 09/15/22 04:21 Labs: Lab Results 09/15/22 09/15/22 09/15/22 Range/Units 04:21 04:21 04:46 WBC 7.7 (4.8-10.8) X10*3/uL RBC 5.11 (4.60-5.80) X10*6/uL Hgb 14.5 (14.0-18.0) g/dl Hct 42.8 (42.0-52.0) % MCV 83.8 (80.0-98.0) fL MCH 28.4 (27.0-33.0) pg MCHC 33.9 (31.0-36.0) g/dl RDW 12.6 (11.0-16.0) % Plt Count 317 (160-400) X10*3/uL MPV 9.1 L (9.4-12.4) fL Immature Gran % (Auto) 0.3 (0.0-0.4) % Neut % (Auto) 55.3 (45-73) % Lymph % (Auto) 33.0 (20-40) % [place] % (Auto) 8.0 (2-11) % Eos % (Auto) 2.5 (0-4) % Baso % (Auto) 0.9 (0-2) % Lymph # (Auto) 2.5 (1.2-4.9) X10*3/uL [place] # (Auto) 0.6 (0.1-1.2) X10*3/uL Eos # (Auto) 0.2 (0.0-0.4) X10*3/uL Baso # (Auto) 0.1 (0.0-0.2) X10*3/uL Abs Immat Gran (auto) 0.02 (0.00-0.03) X10*3/uL Absolute Neuts (auto) 4.2 (2.0-8.3) x10*3/uL Absolute Nucleated RBC 0.000 (0.0-0.012) X10*3/uL Nucleated RBC % (auto) 0.0 (0.0-0.2) /100WBC Sodium 140 (135-145) mmol/L Potassium 4.2 (3.3-5.1) mmol/L Chloride 103 (96-108) mmol/L Carbon Dioxide 25 (22-29) mmol/L Anion Gap 16 (12-20) BUN 16 (9-16) mg/dL Creatinine 1.16 (0.5-1.4) mg/dL Estim Creat Clear Calc 95.3 Estimated GFR > 60 Random Glucose 90 (60-115) mg/dL Calcium 10.0 D (8.4-10.2) mg/dL Total Bilirubin 1.6 H (0.0-1.0) mg/dL Direct Bilirubin 0.3 (0.0-0.5) mg/dL AST 43 H (5-37) U/L ALT 29 (0-40) U/L Alkaline Phosphatase 62 (39-117) U/L Total Protein 7.7 (6.5-8.0) g/dL Albumin 4.9 (3.5-5.0) g/dL Lipase 20 (8-78) U/L Urine Color Yellow Urine Appearance Clear Urine pH 6.0 (5.0-9.0) Ur Specific [place] 1.025 (1.005-1.025) Urine Protein Negative (Neg-Trace) mg/dL Urine Glucose (UA) Negative (Negative) mg/dL Urine Ketones Negative (Negative) mg/dL Urine Blood Negative (Negative) Urine Nitrite Negative (Negative) Ur Leukocyte Esterase Negative (Negative) Discharge Plan Discharge Clinical Impression: Suprapubic discomfort Patient Disposition: Home, Self-Care Additional Instructions: Please follow-up with your primary care physician tomorrow. If you have any worsening or new symptoms, please return to the emergency room or call 911 Prescriptions: New dicyclomine 20 mg tablet 20 mg PO QID 14 Days Qty: 56 0RF phenazopyridine 100 mg tablet 100 mg PO TID PRN (Reason: pain) Qty: 7 0RF No Action docusate sodium [Colace] 100 mg capsule 100 mg PO BID PRN (Reason: Constipation) Qty: 30 0RF sennosides [Senna Laxative] 8.6 mg tablet 8.6 mg PO BID PRN (Reason: constipation) Qty: 30 0RF ciprofloxacin HCl [Cipro] 500 mg tablet 500 mg PO BID Qty: 20 0RF tramadol 50 mg tablet 50 mg PO Q6H PRN (Reason: pain) Qty: 20 0RF oxybutynin chloride 5 mg tablet extended release 24hr 5 mg PO DAILY Qty: 30 0RF ketorolac 10 mg tablet 10 mg PO Q8H PRN (Reason: pain) Qty: 30 0RF oxybutynin chloride 5 mg tablet extended release 24hr 5 mg PO DAILY Qty: 90 3RF Referrals: Kerry Keenan MD [Physician] - 09/15/22 Riley Samson MD [Physician] - 09/15/22
[2022-09-15 04:17] VITALS: BP 130/72; PULSE 52; RESP 16; TEMP 36.6; O2SAT 98; BMI 22.1
[2022-09-15 04:22] VITALS: BP 130/72; PULSE 52; RESP 16; TEMP 36.6; O2SAT 98
--- NOTE | 2022-09-15 04:25 | PC.NURSE ---
IV access obtained 20g R forearm
[2022-09-15 04:28] LABS: Basophils Absolute Auto 0.1 X10*3/uL (0.0-0.2); Basophils Percent Auto 0.9 % (0-2); Eosinophils Absolute Auto 0.2 X10*3/uL (0.0-0.4); Eosinophils Percent Auto 2.5 % (0-4); Hematocrit 42.8 % (42.0-52.0); Hemoglobin 14.5 g/dl (14.0-18.0); Imm Gran Abs Auto 0.02 X10*3/uL (0.00-0.03); Imm Gran Pct Auto 0.3 % (0.0-0.4); Lymphocytes Absolute Auto 2.5 X10*3/uL (1.2-4.9); MANUAL DIFF FLAG NO; Mean Corpuscular HGB Conc 33.9 g/dl (31.0-36.0); Mean Corpuscular Hemoglobin 28.4 pg (27.0-33.0); Mean Corpuscular Volume 83.8 fL (80.0-98.0); Mean Platelet Volume 9.1 fL (9.4-12.4); Monocytes Absolute Auto 0.6 X10*3/uL (0.1-1.2); Neutrophils Absolute Auto 4.2 x10*3/uL (2.0-8.3); Neutrophils Percent Auto 55.3 % (45-73); Platelet Count 317 X10*3/uL (160-400); Red Blood Count 5.11 X10*6/uL (4.60-5.80); Red Cell Distribution Width 12.6 % (11.0-16.0); White Blood Count 7.7 X10*3/uL (4.8-10.8)
[2022-09-15 04:52] LABS: Appearance Urine Clear; Color Urine Yellow; Glucose Urine UA Negative (Negative); Leukocyte Esterase Urine Negative (Negative); Nitrite Urine Negative (Negative); Specific Gravity - Urine 1.025 (1.005-1.025); Urine Blood Negative (Negative); Urine Ketones Negative (Negative); Urine Protein Negative (Neg-Trace)
[2022-09-15 04:52] LABS: Alanine Aminotransferase 29 U/L (0-40); Albumin Level 4.9 g/dL (3.5-5.0); Alkaline Phosphatase 62 U/L (39-117); Anion Gap 16 (12-20); Aspartate Amino Transferase 43 U/L (5-37); Bilirubin Direct 0.3 mg/dL (0.0-0.5); Bilirubin Total 1.6 mg/dL (0.0-1.0); Blood Urea Nitrogen 16 mg/dL (9-16); Carbon Dioxide 25 mmol/L (22-29); Chloride 103 mmol/L (96-108); Creatinine Clr Calc Pharmacy 95.3; Estimated Glomerular Filt Rate > 60; Glucose Random 90 mg/dL (60-115); Lipase 20 U/L (8-78); Potassium 4.2 mmol/L (3.3-5.1); Sodium 140 mmol/L (135-145); Total Protein 7.7 g/dL (6.5-8.0)
[2022-09-15] MEDS: iohexoL 350 MG/ML 100 ML INFUS..BTL 85 ML IV (04:58)
== END 2022-09-15 06:51 | disposition home or self-care (01) ==
PROVIDERS: Emergency Provider Emergency Medicine
DX: R10.30 Lower abdominal pain, unspecified (principal)
CPT/HCPCS: 36415; 74177; 80048; 80076; 81003; 83690; 85025; 99284; Q9967

== ENCOUNTER 2024-07-08 18:46 | Emergency (ER) | payer OTHER, SELFPAY ==
--- NOTE | ~2024-07-08 | CT_ITS ---
CLINICAL HISTORY: Suprapubic pain. Urinary frequency hesitancy CT abdomen and pelvis with contrast Comparison: CT - CT ABDOMEN PELVIS W IV CON - 07/08/24 20:42 EDT Findings: The lung bases are clear. There are few tiny right renal calculi with no evidence of urinary tract obstruction or inflammation. Otherwise normal appearance of the kidneys and ureters. Urinary bladder and prostate are unremarkable. No free fluid or free air in the abdomen or pelvis. Normal stomach, small bowel, appendix, and colon. Normal gallbladder, bile ducts, liver, pancreas, spleen, and adrenal glands. Bones intact. IMPRESSION: Tiny nonobstructing renal calculi on the right. Otherwise normal study. This document has been electronically signed by: pS Harmon MD on 07/08/2024 21:59:11
[2024-07-08 19:07] VITALS: BP 132/67; PULSE 62; RESP 18; TEMP 37.2; O2SAT 98; BMI 22.8
--- NOTE | 2024-07-08 19:07 | ED_ITS ---
HPI - General Adult General Chief complaint: Abdominal Pain Stated complaint: abd pain Time Seen by Provider: 07/08/24 19:36 Source: patient, RN notes reviewed and old records reviewed Mode of arrival: ambulatory History of Present Illness ED Provider: Mary Armendariz PA-C HPI narrative: 24-year-old male with no significant past medical history presenting to the ED complaining of lower abdominal/suprapubic discomfort, urinary frequency & feeling of incomplete emptying x 2 years, worsening recently. Also reports intermittent nausea and constipation. Last BM today. Denies fever, chills, vomiting, diarrhea, dysuria, hematuria, scrotal/testicular pain or swelling. Related Data Previous Rx's ?Medication ?Instructions ?Recorded docusate sodium 100 mg capsule 100 mg PO BID PRN Constipation #30 02/05/21 (Colace) caps sennosides 8.6 mg tablet (Senna 8.6 mg PO BID PRN constipation #30 02/05/21 Laxative) tabs ketorolac 10 mg tablet 10 mg PO Q8H PRN pain #30 tabs 04/13/22 oxybutynin chloride 5 mg 5 mg PO DAILY #30 tabs 04/13/22 tablet,extended release 24 hr oxybutynin chloride 5 mg 5 mg PO DAILY #90 tabs 06/27/22 tablet,extended release 24 hr ciprofloxacin HCl 500 mg tablet 500 mg PO BID #20 tabs 07/02/22 (Cipro) tramadol 50 mg tablet 50 mg PO Q6H PRN pain #20 tabs 07/02/22 dicyclomine 20 mg tablet 20 mg PO QID 2 weeks #56 tabs 09/15/22 phenazopyridine 100 mg tablet 100 mg PO TID PRN pain #7 tabs 09/15/22 dicyclomine 20 mg tablet 20 mg PO QID PRN abdominal pain 07/08/24 #10 tabs ketorolac 10 mg tablet 10 mg PO TID PRN pain 5 days #15 07/08/24 tabs tamsulosin 0.4 mg capsule (Flomax) 0.4 mg PO DAILY #7 caps 07/08/24 Allergies Allergy/AdvReac Type Severity Reaction Status Date / Time No Known Allergies Allergy Verified 07/08/24 19:08 [No Known Allergies*] Review of Systems 2 Review of Systems: Yes all other systems are reviewed and are negative Constitutional: Constitutional: Reports as per [facility] Past Medical History Attestation statement: The following information was validated with the patient. Source: old records reviewed Medical History Acute gastroenteritis Social History Social History Alcohol intake: current Alcohol intake frequency: a few times a month Alcohol type: beer and hard liquor Substance Use Type: Marijuana Physical Exam ED Vital Signs: Vital Signs - 24 hr 07/08/24 19:07 07/08/24 19:39 07/08/24 21:00 Temperature 98.9 F 97.9 F 98.1 F Pulse Rate 62 58 54 Respiratory Rate 18 18 18 Blood Pressure 132/67 130/85 122/80 Pulse Oximetry 98 98 96 Oxygen Delivery Method Room Air Room Air Room Air 07/08/24 22:54 Temperature 98.1 F Pulse Rate 54 Respiratory Rate 18 Blood Pressure 122/80 Pulse Oximetry 96 Oxygen Delivery Method Room Air BMI result Body Mass Index 22.8 Const General: cooperative, healthy appearing and no acute distress Orientation/consciousness: patient oriented x3 Limitations: no limitations HENMT Head: Yes normal to inspection and Yes atraumatic Ears: hearing grossly normal bilaterally General nose exam: Normal external nose present Face and sinus: Yes normal facial exam Eyes General: appearance normal, both eyes and all related structures EOM: EOMs intact bilaterally Neck Neck: Yes normal visual inspection and Yes no meningeal signs Resp Effort & Inspection: normal respiratory effort and no respiratory distress Auscultation: clear to auscultation bilaterally Cardio Rate: regular rate Heart sounds: S1 normal heart sound present and S2 normal heart sound present GI Inspection: Yes normal to inspection Palpation (GI): Soft to palpation, Tenderness to palpation present (GI) suprapubicly; with no rebound tenderness, no guarding and not rigid General: Yes no CVA tenderness Back/Spine/Pelvis Back: no CVA tenderness Skin Rashes: no rashes Wounds: no wounds Neuro General: patient oriented x3, tone normal and no meningeal signs Cranial nerves: Yes CN's II-XII intact bilaterally Gait exam (Neuro): Normal gait present Extrem General: Yes normal to inspection Course Course Course Narrative: This is a rapid medical exam performed by Darryl Jiang NP: Additional HPI, ROS, PE not included below will be deferred to primary provider. Patient is a 24-year-old male presenting with complaint of lower abdominal pain and nausea for over a month. Denies vomiting, diarrhea, fevers. Rates pain at 5/10. Plan: UA, labs -2133--labs reassuring. T bili mildly elevated. PSA WNL -UA neg CT abdomen pelvis w IV con IMPRESSION: Tiny nonobstructing renal calculi on the right. Otherwise normal study. >2232--on re-evaluation patient resting comfortably. Possibly passing small stones causing discomfort. Will discharge home with Toradol, Flomax, Bentyl and urology/GI follow-up Results discussed with patient including worrisome signs and symptoms and strict return precautions, and when to return to the emergency department. They verbalized understanding and feel safe for discharge at this time. Medications Administered Discontinued Medications Generic Name Dose Route Start Last Admin Trade Name Freq PRN Reason Stop Dose Admin Iohexol 100 ml 07/08/24 20:47 07/08/24 20:48 Iohexol 350 Mg/Ml 100 Ml Infus..Btl IV 07/08/24 20:48 85 ml ONCE ONE Administration Ketorolac Tromethamine 30 mg 07/08/24 22:33 07/08/24 22:43 Ketorolac Tromethamine 30 Mg/Ml Vial IM 07/08/24 22:34 30 mg ONCE ONE Administration Medical Decision Making Medical Decision Making [facility] Narrative: 24-year-old male with no significant past medical history presenting to the ED complaining of lower abdominal/suprapubic discomfort, urinary frequency & feeling of incomplete emptying x 2 years, worsening recently. Also reports intermittent nausea and constipation. On exam vital signs stable, NAD, nontoxic appearing, abdomen is soft with suprapubic tenderness, no rebound or guarding, no CVAT. Concern for UTI vs bladder spasm vs colitis vs IBS vs ?renal stone. Low suspicion for testicular torsion or STI with duration of symptoms Plan: Labs, UA, CT AP, re-evaluate Please refer to course for remaining clinical decision making, interpretation of labs/imaging results, and discussions with consultants and/or family members. Differential Diagnosis Differential Diagnoses: The differential diagnosis associated with the presentation includes As above Admission/Observation Consideration of admission/observation: Escalation of care including admission/observation considered Lab Data [facility] Lab Attestation statement: I reviewed the patient's lab results. 07/08/24 19:17 07/08/24 19:17 Labs: Lab Results 07/08/24 07/08/24 Range/Units 19:17 20:34 WBC 9.9 (4.8-10.8) X10*3/uL RBC 5.06 (4.60-5.80) X10*6/uL Hgb 14.8 (14.0-18.0) g/dl Hct 41.6 L (42.0-52.0) % MCV 82.2 (80.0-98.0) fL MCH 29.2 (27.0-33.0) pg MCHC 35.6 (31.0-36.0) g/dl RDW 12.9 (11.0-16.0) % Plt Count 305 (160-400) X10*3/uL MPV 8.8 L (9.4-12.4) fL Immature Gran % (Auto) 0.3 (0.0-0.4) % Neut % (Auto) 77.5 H (45-73) % Lymph % (Auto) 16.1 L (20-40) % [place] % (Auto) 5.1 (2-11) % Eos % (Auto) 0.4 (0-4) % Baso % (Auto) 0.6 (0-2) % Lymph # (Auto) 1.6 (1.2-4.9) X10*3/uL [place] # (Auto) 0.5 (0.1-1.2) X10*3/uL Eos # (Auto) 0.0 (0.0-0.4) X10*3/uL Baso # (Auto) 0.1 (0.0-0.2) X10*3/uL Abs Immat Gran (auto) 0.03 (0.00-0.03) X10*3/uL Absolute Neuts (auto) 7.7 (2.0-8.3) x10*3/uL Absolute Nucleated RBC 0.000 (0.0-0.012) X10*3/uL Nucleated RBC % (auto) 0.0 (0.0-0.2) /100WBC Sodium 138 (135-145) mmol/L Potassium 4.5 (3.3-5.1) mmol/L Chloride 103 (96-108) mmol/L Carbon Dioxide 25 (22-29) mmol/L Anion Gap 15 (12-20) BUN 20 H (9-16) mg/dL Creatinine 1.34 (0.5-1.4) mg/dL Estim Creat Clear Calc 81.1 Estimated GFR > 60 Random Glucose 98 (60-115) mg/dL Calcium 9.8 (8.4-10.2) mg/dL Magnesium 2.2 (1.6-2.6) mg/dL Total Bilirubin 1.8 H (0.0-1.0) mg/dL AST 20 (5-37) U/L ALT 24 (0-40) U/L Alkaline Phosphatase 64 (39-117) U/L Total Protein 8.5 H (6.5-8.0) g/dL Albumin 5.0 (3.5-5.0) g/dL Lipase 20 (8-78) U/L Prostate Specific Ag 0.51 (<0.05-4.0) ng/mL Urine Color Yellow Urine Appearance Clear Urine pH 8.5 (5.0-9.0) Ur Specific [place] 1.025 (1.005-1.025) Urine Protein Negative (Neg-Trace) mg/dL Urine Glucose (UA) Negative (Negative) mg/dL Urine Ketones Negative (Negative) mg/dL Urine Blood Negative (Negative) Urine Nitrite Negative (Negative) Ur Leukocyte Esterase Negative (Negative) Independent Interpretation I performed an independent interpretation of an: CT Scan Radiology Impression Discussion of test interpretation with radiology: I have reviewed the radiologist's reading. Independent Historian Clinical information obtained from an independent historian. History obtained from or confirmed by: Parent External Record Review External record reviewed: Inpatient record, Office record, Outpatient record, Prior outpatient labs, Prior outpatient radiology, Primary care record and Outside ED record Tests considered The following testing was considered but not selected: As above Prescription Management I considered prescription management with: Pain Medication and Antibiotic Chronic Conditions Patient?s care impacted by: Other Social Determinants Patient?s care significantly limited by Social Determinants of Health including: Other Social Determinant of Health Discharge Plan Discharge Clinical Impression: Renal calculi Patient Disposition: Home, Self-Care Instructions: Kidney Stones (ED) Additional Instructions: Your blood work is reassuring Your urine is not infected Your CT scan shows tiny nonobstructing renal stones on the right side. It is possible you are passing kidney stones Toradol as an anti-inflammatory pain medication, take with food. Do not take both Toradol, ibuprofen/Motrin, we have or naproxen as they are all similar medications Flomax will help dilate the ureter Please have close follow up with Gastroenterology and Urology, call to make an appointment If her symptoms persist or worsen return to the ED Prescriptions: New dicyclomine 20 mg tablet 20 mg PO QID PRN (Reason: abdominal pain) Qty: 10 0RF ketorolac 10 mg tablet 10 mg PO TID PRN (Reason: pain) 5 Days Qty: 15 0RF tamsulosin [Flomax] 0.4 mg capsule 0.4 mg PO DAILY Qty: 7 0RF No Action docusate sodium [Colace] 100 mg capsule 100 mg PO BID PRN (Reason: Constipation) Qty: 30 0RF sennosides [Senna Laxative] 8.6 mg tablet 8.6 mg PO BID PRN (Reason: constipation) Qty: 30 0RF ciprofloxacin HCl [Cipro] 500 mg tablet 500 mg PO BID Qty: 20 0RF tramadol 50 mg tablet 50 mg PO Q6H PRN (Reason: pain) Qty: 20 0RF oxybutynin chloride 5 mg tablet extended release 24hr 5 mg PO DAILY Qty: 30 0RF ketorolac 10 mg tablet 10 mg PO Q8H PRN (Reason: pain) Qty: 30 0RF oxybutynin chloride 5 mg tablet extended release 24hr 5 mg PO DAILY Qty: 90 3RF dicyclomine 20 mg tablet 20 mg PO QID 14 Days Qty: 56 0RF phenazopyridine 100 mg tablet 100 mg PO TID PRN (Reason: pain) Qty: 7 0RF Referrals: [facility] [Provider Group] [facility] [Provider Group] - 1 week Stand Alone Forms: Work/School Release Interventions: ED Discharge Assessment Last Done: 07/08/24 22:54 Discharge Date/Time: 07/08/24 22:54 Print Language: Choose Not To Answer
[2024-07-08 19:23] LABS: MANUAL DIFF FLAG NO
[2024-07-08 19:35] LABS: Basophils Absolute Auto 0.1 X10*3/uL (0.0-0.2); Basophils Percent Auto 0.6 % (0-2); Eosinophils Percent Auto 0.4 % (0-4); Hematocrit 41.6 % (42.0-52.0); Hemoglobin 14.8 g/dl (14.0-18.0); Imm Gran Abs Auto 0.03 X10*3/uL (0.00-0.03); Imm Gran Pct Auto 0.3 % (0.0-0.4); Lymphocytes Absolute Auto 1.6 X10*3/uL (1.2-4.9); Lymphocytes Percent Auto 16.1 % (20-40); Mean Corpuscular HGB Conc 35.6 g/dl (31.0-36.0); Mean Corpuscular Hemoglobin 29.2 pg (27.0-33.0); Mean Corpuscular Volume 82.2 fL (80.0-98.0); Mean Platelet Volume 8.8 fL (9.4-12.4); Monocytes Absolute Auto 0.5 X10*3/uL (0.1-1.2); Monocytes Percent Auto 5.1 % (2-11); Neutrophils Absolute Auto 7.7 x10*3/uL (2.0-8.3); Neutrophils Percent Auto 77.5 % (45-73); Platelet Count 305 X10*3/uL (160-400); Red Blood Count 5.06 X10*6/uL (4.60-5.80); Red Cell Distribution Width 12.9 % (11.0-16.0); White Blood Count 9.9 X10*3/uL (4.8-10.8)
[2024-07-08 19:39] VITALS: BP 130/85; PULSE 58; RESP 18; TEMP 36.6; O2SAT 98
[2024-07-08 19:41] LABS: Alanine Aminotransferase 24 U/L (0-40); Alkaline Phosphatase 64 U/L (39-117); Anion Gap 15 (12-20); Aspartate Amino Transferase 20 U/L (5-37); Bilirubin Total 1.8 mg/dL (0.0-1.0); Blood Urea Nitrogen 20 mg/dL (9-16); Calcium 9.8 mg/dL (8.4-10.2); Carbon Dioxide 25 mmol/L (22-29); Chloride 103 mmol/L (96-108); Creatinine Clr Calc Pharmacy 81.1; Estimated Glomerular Filt Rate > 60; Glucose Random 98 mg/dL (60-115); Potassium 4.5 mmol/L (3.3-5.1); Sodium 138 mmol/L (135-145); Total Protein 8.5 g/dL (6.5-8.0)
[2024-07-08 20:34] LABS: Lipase 20 U/L (8-78); Magnesium 2.2 mg/dL (1.6-2.6)
[2024-07-08] MEDS: iohexoL 350 MG/ML 100 ML INFUS..BTL IV (20:48)
[2024-07-08 20:51] LABS: Appearance Urine Clear; Color Urine Yellow; Glucose Urine UA Negative (Negative); Leukocyte Esterase Urine Negative (Negative); Nitrite Urine Negative (Negative); PH 8.5 (5.0-9.0); Specific Gravity - Urine 1.025 (1.005-1.025); Urine Blood Negative (Negative); Urine Ketones Negative (Negative); Urine Protein Negative (Neg-Trace)
[2024-07-08 21:00] VITALS: BP 122/80; PULSE 54; RESP 18; TEMP 36.7; O2SAT 96
--- NOTE | 2024-07-08 21:05 | MHC.EDTECH ---
post void bladder scan 87ml. Leena SCHERER aware
[2024-07-08 21:31] LABS: Prostate Specific Antigen 0.51 ng/mL (<0.05-4.0)
[2024-07-08] MEDS: Ketorolac Tromethamine 30 MG/ML VIAL IM (22:43)
[2024-07-08 22:54] VITALS: BP 122/80; PULSE 54; RESP 18; TEMP 36.7; O2SAT 96
== END 2024-07-08 22:54 | disposition home or self-care (01) ==
PROVIDERS: Physician Assistant; Registered Nurse Emergency; Emergency Provider Emergency Medicine
DX: N20.0 Calculus of kidney (principal); R35.0 Frequency of micturition; K59.00 Constipation, unspecified; R11.0 Nausea; R10.2 Pelvic and perineal pain; Z79.899 Other long term (current) drug therapy; Z12.5 Encounter for screening for malignant neoplasm of prostate
CPT/HCPCS: 36415; 51798; 74177; 80053; 81003; 83690; 83735; 84153; 85025; 96372; 99284; J1885; Q9967

== ENCOUNTER → 2024-07-08 20:18 | Outpatient (BNV) | payer OTHER, SELFPAY | PROVIDERS: Emergency Provider Emergency Medicine; Visit Provider Radiology Diagnostic Radiology | DX: R10.2 Pelvic and perineal pain (principal) | CPT/HCPCS: 74177 ==

== ENCOUNTER 2024-09-05 12:56 | Outpatient (AMB) | payer OTHER, SELFPAY ==
--- NOTE | 2024-09-05 13:39 | A.OFFVIS_ITS ---
Intake Visit Reasons: right sided kidney stones Allergies No Known Allergies [No Known Allergies*] Allergy (Verified 09/05/24 20:59) Medication List - Last Reconciled 09/05/24 by ANIL Madison ciprofloxacin HCl (Cipro) 500 mg PO BID dicyclomine 20 mg PO QID 2 weeks dicyclomine 20 mg PO QID PRN docusate sodium (Colace) 100 mg PO BID PRN ketorolac 10 mg PO Q8H PRN ketorolac 10 mg PO TID PRN 5 days oxybutynin chloride ER 5 mg PO DAILY oxybutynin chloride ER 5 mg PO DAILY phenazopyridine 100 mg PO TID PRN sennosides (Senna Laxative) 8.6 mg PO BID PRN tamsulosin (Flomax) 0.4 mg PO DAILY tramadol 50 mg PO Q6H PRN HPI Comments Details: Charlie is a very pleasant 24-year-old male patient. He has a past medical history of acute gastroenteritis. He presents to the office today as a new patient for ongoing lower urinary tract symptoms he has been experiencing as well as nephrolithiasis. In discussion with the patient today he reports having seeked emergency room care approximately 2 months ago for ongoing issues he has been experiencing. He describes a longstanding history for many years of lower abdominal pain as well as bladder pressure with intermittent episodes of urinary frequency and feeling of incomplete bladder emptying. He reports never following up with a PCP regarding this issue as he was away at college however is attempting to establish care at this time. When asked he does report having a history of being sexually active when in college however most recently is not sexually active. He reports having had STD workup recently and being told everything was within normal limits. Here also reports issues with constipation. We discussed correlation of constipation and lower urinary tract symptoms. In review of patient's chart it appears a CT of the abdomen was ordered and performed while he was in the ER in noted 07/19 there are a few tiny right renal calculi with no evidence of urinary tract obstruction or inflammation. Otherwise normal-appearing kidneys and ureters. The urinary bladder and prostate are unremarkable. We did discussed potential causes of low er urinary tract symptoms patient is experiencing as well as further treatment options and risks and benefits of these treatment options. JOSÉ offered however deferred. He reports feeling pressure in the perineum. We discussed potential prostatitis however patient refusing JOSÉ today. I did offer him follow-up with male provider if he would like. He otherwise denies incontinence, nocturia, hematuria, foul smelling urine, changes to urinary stream, flank pain, fever, and or chills. History of Present Illness The patient is a 24-year-old male presenting with urinary issues and gastrointestinal disturbances. He has been experiencing irregular bowel movements and pressure on the bladder, initially seeking emergency room treatment in June due to discomfort, which then led to a CT scan revealing kidney stones. The patient suspects that his symptoms may be related to prostatitis. These symptoms began abruptly a couple of years ago and were prevalent during his university years, causing him considerable discomfort and necessitating management of activities. Urinary complaints include intermittent episodes of urinary urgency, frequency, and burning, with negative results for STIs. He experiences continual discomfort in the prostate area despite attempts to clear his gastrointestinal system, suspecting a linkage between these systems. He seeks further evaluation by a gastrointestinal specialist. Plan Prostatitis is suspected based on the patient's symptomatology, warranting a course of Bactrim for two weeks for infection control. A short course of prednisone is introduced to mitigate inflammation, with Mobic for ongoing anti- inflammatory support, advising the patient against other NSAIDs during treatment. Additionally, a referral to a lithographed plate inspector is made to correlate urinary symptoms with gastrointestinal function. The patient consents to the plan and is aware of the need for follow-up in one month to assess treatment effectiveness, with alternative diagnostic strategies available if symptoms persist. Patient was informed and verbally consented to the use of an ambient scribe for clinic note documentation during this visit. Discussion Notes I discussed with the patient the likely diagnosis of prostatitis and the associated treatment options, including antibiotic therapy with Bactrim, anti- inflammatory treatment with Mobic, and a short course of prednisone. I highlighted the importance of avoiding other NSAIDs while on Mobic. We discussed the relationship between gastrointestinal function and urinary symptoms, supporting a referral to a lithographed plate inspector to assess the potential linkage. A follow-up plan was established to review symptom progression and consider further diagnostic measures, such as a digital rectal examination by a male provider if needed. The patient agreed to the proposed plan and understands the importance of adherence to the medication regimen and follow-up visits. [facility] Medical History Acute gastroenteritis Social History Alcohol intake: current Alcohol intake frequency: a few times a month Alcohol type: beer and hard liquor Substance Use Type: Marijuana Review of Systems Const All systems reviewed & are unremarkable except as noted in HPI and below Physical Exam Const General: cooperative, healthy appearing, comfortable, no acute distress, well developed, alert and awake Nutritional Appearance: average body habitus Orientation/consciousness: patient oriented x3 Limitations: no limitations HEENT Head: Yes normal to inspection, Yes normocephalic and Yes atraumatic Ears: hearing grossly normal bilaterally Eyes General: appearance normal, both eyes and all related structures Neck Neck: Yes normal visual inspection and Yes trachea midline Chest Chest palpation & inspection: normal inspection of the chest Resp Effort & Inspection: normal respiratory effort and able to speak in complete sentences Cardio Rate: regular rate GI Inspection: Yes normal to inspection General: Yes no CVA tenderness Back/Spine/Pelvis Back: no CVA tenderness Skin General skin exam: no rashes or lesions noted Neuro General: patient oriented x3 Extrem General: Yes normal to inspection Psych Appearance: grossly normal and well kempt Mental Status: mental status grossly normal Speech and movement: Normal speech and movement present and Clear speech present Affect: normal affect Attitude: cooperative Thought process: Normal thought process present Thought content: Normal thought content present Insight: Fair insight present (Psych) Judgement: Fair judgement present (Psych) Results AMB Urinalysis, Automated UA Leukoctes 70 Rufino/uL Last Edit by Lidia Scott CMA on 5 13:28 UA Nitrite Positive Last Edit by Lidia Scott CMA on 09/05/24 13:28 UA Urobilinogen 0.2 mg/dL Last Edit by Lidia Scott CMA on 09/05/24 13:28 UA Protein 30 mg/dL Last Edit by Lidia Scott CMA on 09/05/24 13:28 UA pH 6.0 Last Edit by Lidia Scott CMA on 09/05/24 13:28 UA Blood 0 Sathya/uL Last Edit by Lidia Scott CMA on 09/05/24 13: 28 UA Specific [place] 1.030 Last Edit by Lidia Scott CMA on 09/05/24 13:28 UA Ketone Positive Last Edit by Lidia Scott CMA on 09/05/24 13:28 UA Bilirubin 0 mg/dL Last Edit by Lidia Scott CMA on 09/05/24 13:28 UA Glucose 0 mg/dL Last Edit by Ldiia Scott CMA on 09/05/24 13 :28 Results Reviewed Results Reviewed: Laboratory Last Values Urine pH (Auto) 6.0 09/05/24 13:23 Specific [place] (Auto) 1.030 09/05/24 13:23 Urine Protein (Auto) 30 mg/dL 09/05/24 13:23 Glucose (UA)(Auto) 0 mg/dL 09/05/24 13:23 Urine Ketones (Auto) Positive 09/05/24 13:23 Urine Blood (Auto) 0 Sathya/uL 09/05/24 13:23 Urine Nitrite (Auto) Positive 09/05/24 13:23 Urine Bilirubin (Auto) 0 mg/dL 09/05/24 13:23 Urine Urobilinogen (Auto) 0.2 mg/dL 09/05/24 13:23 Leukocyte Esterase (Auto) 70 Rufino/uL 09/05/24 13:23 Date of Service: 07/08/24 Procedure(s): CT abdomen pelvis w IV con Findings: The lung bases are clear. There are few tiny right renal calculi with no evidence of urinary tract obstruction or inflammation. Otherwise normal appearance of the kidneys and ureters. Urinary bladder and prostate are unremarkable. No free fluid or free air in the abdomen or pelvis. Normal stomach, small bowel, appendix, and colon. Normal gallbladder, bile ducts, liver, pancreas, spleen, and adrenal glands. Bones intact. IMPRESSION: Tiny nonobstructing renal calculi on the right. Otherwise normal study. Assessment & Plan Assessment & Plan (1) Lower urinary tract symptoms: Code(s): R39.9 - Unspecified symptoms and signs involving the genitourinary system Category: Medical (2) Prostatitis: Code(s): N41.9 - Inflammatory disease of prostate, unspecified Category: Medical (3) Constipation: Code(s): K59.00 - Constipation, unspecified Category: Medical Plan In office urinalysis results reviewed with the patient today; as noted above. Recent CT results reviewed with the patient today; as noted above. We discussed at length potential causes of lower urinary tract symptoms patient is experiencing as well as further treatment options and risks and benefits of these treatment options. JOSÉ offered however deferred. We discussed importance of adequate hydration relation to nephrolithiasis as well as overall health and well-being. We discussed bladder triggers/irritants. Start Bactrim as discussed and prescribed. Start prednisone as discussed and prescribed. Prescription provided for Mobic; we discussed avoiding NSAIDs while on Mobic therapy. Follow-up in 1 month with PVR; or sooner with any issues, concerns, and or questions. Orders: Orders AMB Urinalysis Automated Today Z13.9 - Encounter for screening, unspecified Referrals Gastroenterology Referral K59.00 - Constipation, unspecified Medications: New prednisone 20 mg PO DAILY 5 days 5 tabs 0RF N20.0 - Calculus of kidney meloxicam 15 mg PO DAILY 30 days 30 tabs 0RF R10.31 - Right lower quadrant pain, R10.32 - Left lower quadrant pain sulfamethoxazole-trimethoprim 800-160 mg (Bactrim DS) 1 tab PO BID 14 days 28 tabs 0RF N39.0 - Urinary tract infection, site not specified Discontinued docusate sodium (Colace) Discontinued Reason: Patient Completed Course 100 mg PO BID PRN 30 caps 0RF Constipation sennosides (Senna Laxative) Discontinued Reason: Patient Completed Course 8.6 mg PO BID PRN 30 tabs 0RF constipation oxybutynin chloride ER Discontinued Reason: Patient Completed Course 5 mg PO DAILY 30 tabs 0RF oxybutynin chloride ER Discontinued Reason: Patient Completed Course 5 mg PO DAILY 90 tabs 3RF tramadol Discontinued Reason: Patient Completed Course 50 mg PO Q6H PRN 20 tabs 0RF pain ketorolac Discontinued Reason: Patient Completed Course 10 mg PO Q8H PRN 30 tabs 0RF pain ciprofloxacin HCl (Cipro) Discontinued Reason: Patient Completed Course 500 mg PO BID 20 tabs 0RF dicyclomine Discontinued Reason: Patient Completed Course 20 mg PO QID 2 weeks 56 tabs 0RF dicyclomine Discontinued Reason: Patient Completed Course 20 mg PO QID PRN 10 tabs 0RF abdominal pain phenazopyridine Discontinued Reason: Patient Completed Course 100 mg PO TID PRN 7 tabs 0RF pain ketorolac Discontinued Reason: Patient Completed Course 10 mg PO TID 5 days PRN 15 tabs 0RF pain tamsulosin (Flomax) Discontinued Reason: Patient Completed Course 0.4 mg PO DAILY 7 caps 0RF Patient Instructions: The patient had an opportunity to ask questions regarding the treatment plan. All questions were answered. Physical exam, labs, and imaging were discussed and reviewed in detail. As well as risks, benefits, and discussion of treatment choices. No major barriers to understanding were identified. The patient expressed understanding and agreement with the above treatment plan. The patient was made aware they should contact our office by phone for worsening of their current condition, the appearance of new symptoms, or with any questions or concerns. Compliance is encouraged with any medications and follow up testing that is ordered. It is a privilege to be allowed the opportunity to participate in? your urological care.? Again, if you have any questions or concerns If you have any questions or concerns please do not hesitate to contact me. The office is [phone]. This note is constructed using voice recognition software. While every effort has been made to ensure accuracy registered medical transcriptionist errors may have been included. Yours sincerely, ANIL Madison Coding Level of Care Code New Pt Level 4 (83123) Diagnoses Lower urinary tract symptoms R39.9 Prostatitis N41.9 Constipation K59.00
== END 2024-09-05 13:45 | disposition home or self-care (01) ==
LOC: HO.HUSH 12:57
PROVIDERS: Visit Provider Nurse Practitioner Family
DX: R39.9 Unspecified symptoms and signs involving the genitourinary system (principal); N41.9 Inflammatory disease of prostate, unspecified; K59.00 Constipation, unspecified; Z13.9 Encounter for screening, unspecified
CPT/HCPCS: 99204

== ENCOUNTER → 2024-09-05 12:56 | Outpatient (BNVA) | payer OTHER, SELFPAY | PROVIDERS: Visit Provider Nurse Practitioner Family | DX: R39.9 Unspecified symptoms and signs involving the genitourinary system (principal); N41.9 Inflammatory disease of prostate, unspecified; K59.00 Constipation, unspecified | CPT/HCPCS: 81003 ==

== ENCOUNTER 2024-10-17 15:00 | Outpatient (AMB) | payer OTHER, SELFPAY ==
--- NOTE | 2024-10-17 15:02 | A.OFFVIS_ITS ---
Intake Visit Reasons: 6 weeks f/u PVR Intake Note: New Patient presents for initial visit for prostatitis Urology Medications: none Blood Thinner: none PVR: 32ml's Finisher Brush Required: No Accompanied by: Self / Same As Patient Allergies No Known Allergies (No Known Allergies*) Allergy (Verified 10/17/24 15:42) Medication List - Last Reconciled 10/17/24 by ANIL Madison alfuzosin ER 10 mg PO BEDTIME 30 days HPI Comments Details: Charlie is a very pleasant 24-year-old male patient. He has a past medical history of acute gastroenteritis. He presents to the office today for follow-up. Of note, patient was seen approximately 6 weeks ago as a new patient for ongoing lower urinary tract symptoms as well as nephrolithiasis at which time he was treated with a 2 week course of Bactrim for presumed prostatitis given patient's symptoms as he had been refusing JOSÉ. In discussion with the patient today he reports feeling urinary symptoms have not been as prevalent as he had been experiencing them however he does continue to have lower urinary tract symptoms. He describes these symptoms as variable. He reports feeling when he is busy at work he experiences less issues however when he is not busy he feels symptoms are more prevalent. Previous workup has included a CT 07/19 that noted a few tiny right renal calculi with no evidence of urinary tract obstruction or inflammation. Otherwise normal-appearing kidneys and ureters. The urinary bladder and prostate are unremarkable. He continues to experience episodes of urinary frequency, perineal pain and feeling of incomplete bladder emptying. In office urinalysis results reviewed with the patient today. PVR 32 mL. He continues to experience issues with his bowels. During last office visit referral was submitted for gastroenterology and he reports upcoming appointment in December. We did discussed potential causes of lower urinary tract symptoms patient is experiencing as well as further treatment options and risks and benefits of these treatment options. He continues to decline JOSÉ at this time. He otherwise denies incontinence, nocturia, hematuria, foul smelling urine, changes to urinary stream, flank pain, fever, and or chills. He describes a sensation of incomplete bladder emptying, which is bothersome and feels like an irritant. He also reports perineal pain, which he associates with tenderness on the right upper abdominal quadrant, particularly when straining. The patient has been referred to gastroenterology for further evaluation of potential gastrointestinal issues, as constipation may be contributing to his urinary symptoms. [facility] Medical History Acute gastroenteritis Social History Alcohol intake: current Alcohol intake frequency: a few times a month Alcohol type: beer and hard liquor Substance Use Type: Marijuana Review of Systems Const All systems reviewed & are unremarkable except as noted in HPI and below Physical Exam Const General: cooperative, healthy appearing, comfortable, no acute distress, well developed, alert and awake Nutritional Appearance: average body habitus Orientation/consciousness: patient oriented x3 Limitations: no limitations HEENT Head: Yes normal to inspection, Yes normocephalic and Yes atraumatic Ears: hearing grossly normal bilaterally Eyes General: appearance normal, both eyes and all related structures Neck Neck: Yes normal visual inspection and Yes trachea midline Chest Chest palpation & inspection: normal inspection of the chest Resp Effort & Inspection: normal respiratory effort and able to speak in complete sentences Cardio Rate: regular rate GI Inspection: Yes normal to inspection General: Yes no CVA tenderness Back/Spine/Pelvis Back: no CVA tenderness Skin General skin exam: no rashes or lesions noted Neuro General: patient oriented x3 Extrem General: Yes normal to inspection Psych Appearance: grossly normal and well kempt Mental Status: mental status grossly normal Speech and movement: Normal speech and movement present and Clear speech present Affect: normal affect Attitude: cooperative Thought process: Normal thought process present Thought content: Normal thought content present Insight: Fair insight present (Psych) Judgement: Fair judgement present (Psych) Office Procedures Post Void Residual Post Residual Void Post Void Residual (PVR): 32 [id number] Void Residual by ultrasound Results AMB Urinalysis, Automated UA Leukoctes 0 Rufino/uL Last Edit by JIMMIE Flores on 10/17/24 15:25 UA Nitrite Last Edit by Abdi Mercedes CCMA on 10/17/24 15:25 UA Urobilinogen 0.2 mg/dL Last Edit by Abdi Mercedes, [facility] on 10/17/24 15:2 5 UA Protein 15 mg/dL Last Edit by Abdi Mercedes, [facility] on 10/17/24 15:25 UA pH 8.5 Last Edit by Abdi Mercedes, [facility] on 10/17/24 15:25 UA Blood 0 Sathya/uL Last Edit by Abdi Mercedes, [facility] on 10/17/24 15:25 UA Specific [place] 1.010 Last Edit by Abdi Mercedes, [facility] on 10/17/24 15: 25 UA Ketone Last Edit by Abdi Mercedes, [facility] on 10/17/24 15:25 UA Bilirubin 0 mg/dL Last Edit by Abdi Mercedes, [facility] on 10/17/24 15:25 UA Glucose 0 mg/dL Last Edit by Abdi Merecdes, [facility] on 10/17/24 15:25 Results Reviewed Results Reviewed: Laboratory Last Values Urine pH (Auto) 8.5 10/17/24 15:23 Specific [place] (Auto) 1.010 10/17/24 15:23 Urine Protein (Auto) 15 mg/dL 10/17/24 15:23 Glucose (UA)(Auto) 0 mg/dL 10/17/24 15:23 Urine Blood (Auto) 0 Sathya/uL 10/17/24 15:23 Urine Bilirubin (Auto) 0 mg/dL 10/17/24 15:23 Urine Urobilinogen (Auto) 0.2 mg/dL 10/17/24 15:23 Leukocyte Esterase (Auto) 0 Rufino/uL 10/17/24 15:23 Assessment & Plan Assessment & Plan (1) Lower urinary tract symptoms: Code(s): R39.9 - Unspecified symptoms and signs involving the genitourinary system Category: Medical (2) Feeling of incomplete bladder emptying: Code(s): R39.14 - Feeling of incomplete bladder emptying Category: Medical Plan In office urinalysis results reviewed with the patient today; as noted above. PVR 32 mL. We did discussed potential causes of variable lower urinary tract symptoms patient continues to experience We discussed further treatment options and risks and benefits of these treatment options JOSÉ was offered however deferred. Start alfuzosin as discussed and prescribed. We discussed bladder triggers/irritants. We discussed importance of continuing adequate hydration relation to lower urinary tract symptoms as well as overall health and well-being. We discussed potential near future in office cystoscopy and or urodynamics if symptoms persist and/or worsen. All questions were answered. Follow-up in 1-3 months with PVR; or sooner with any issues, concerns, and or questions. Orders: Orders AMB Urinalysis Automated Today Z13.9 - Encounter for screening, unspecified AMB Post Void Residual by ultrasound Today R39.9 - Unspecified symptoms and signs involving the genitourinary system Medications: New alfuzosin ER Take before bedtime 10 mg PO BEDTIME 30 tabs 3RF 30 days N32.0 - Bladder- neck obstruction, N40.1 - Benign prostatic hyperplasia with lower urinary tract symptoms, R33.9 - Retention of urine, unspecified, R35.1 - Nocturia, R39.12 - Poor urinary stream Patient Instructions: The patient had an opportunity to ask questions regarding the treatment plan. All questions were answered. Physical exam, labs, and imaging were discussed and reviewed in detail. As well as risks, benefits, and discussion of treatment choices. No major barriers to understanding were identified. The patient expressed understanding and agreement with the above treatment plan. The patient was made aware they should contact our office by phone for worsening of their current condition, the appearance of new symptoms, or with any questions or concerns. Compliance is encouraged with any medications and follow up testing that is ordered. It is a privilege to be allowed the opportunity to participate in? your urological care.? Again, if you have any questions or concerns If you have any questions or concerns please do not hesitate to contact me. The office is [phone]. This note is constructed using voice recognition software. While every effort has been made to ensure accuracy lithographing machine operator errors may have been included. Yours sincerely, ANIL Madison Coding Level of Care Code Est Pt Level 4 (64560) Diagnoses Lower urinary tract symptoms R39.9 Feeling of incomplete bladder emptying R39.14 CPT Codes Post Residual Void - PVR CPT Code: 68001-Idtm Void Residual by ultrasound ([id number])
== END 2024-10-17 15:40 | disposition home or self-care (01) ==
LOC: HO.HUSH 15:00
PROVIDERS: Visit Provider Nurse Practitioner Family
DX: R39.9 Unspecified symptoms and signs involving the genitourinary system (principal); R39.14 Feeling of incomplete bladder emptying; Z13.9 Encounter for screening, unspecified
CPT/HCPCS: 99214

== ENCOUNTER → 2024-10-17 15:00 | Outpatient (BNVA) | payer SELFPAY | PROVIDERS: Visit Provider Nurse Practitioner Family | DX: R39.9 Unspecified symptoms and signs involving the genitourinary system (principal); R39.14 Feeling of incomplete bladder emptying | CPT/HCPCS: 51798; 81003 ==

== ENCOUNTER 2025-04-19 13:33 | Outpatient (AMB) | payer OTHER, SELFPAY ==
--- NOTE | 2025-04-19 13:40 | A.OFFVIS_ITS ---
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 He has a past medical history of acute gastroenteritis. He presents to the office today for follow-up of his lower urinary tract symptoms. In discussion with the patient today reports no improvement in labile urinary symptoms he has been experiencing. He reports he continues to experience episodes of perineal pain, dysuria at the end of urination, and right lower quadrant pain at times with urination. He does report at times he feels symptoms are worse with bowel issues. He reports at times he feels he is constipated and when he experiences constipation these labile urinary symptoms worsen. He denies incontinence, nocturia, hematuria, foul smelling urine, changes to urinary stream, flank pain, fever, and or chills. In office urinalysis results with the patient today. Previous workup has included a CT 07/19 that noted a few tiny right renal calculi with no evidence of urinary tract obstruction or inflammation. Otherwise normal- appearing kidneys and ureters. The urinary bladder and prostate are unremarkable. We did discuss potential causes of lower urinary tract symptoms patient is experiencing as well as further treatment options and risks and benefits of these treatment options. He continues to decline JOSÉ at this time. We did discuss potential for acute verses chronic prostatitis. We also discussed further treatment options of lower urinary tract symptoms and risks and benefits of these treatment options. We discussed prostate massage versus cystoscopy for further assessment evaluation. All questions were answered to the best of my ability. He otherwise offers no other issues or concerns at this time. [facility] Medical History Acute gastroenteritis Social History Alcohol intake: current Alcohol intake frequency: a few times a month Alcohol type: beer and hard liquor Substance Use Type: Marijuana Review of Systems Const All systems reviewed & are unremarkable except as noted in HPI and below Physical Exam Const General: cooperative, healthy appearing, comfortable, no acute distress, well developed, alert and awake Nutritional Appearance: average body habitus Orientation/consciousness: patient oriented x3 Limitations: no limitations HEENT Head: Yes normal to inspection, Yes normocephalic and Yes atraumatic Ears: hearing grossly normal bilaterally Eyes General: appearance normal, both eyes and all related structures Neck Neck: Yes normal visual inspection and Yes trachea midline Chest Chest palpation & inspection: normal inspection of the chest Resp Effort & Inspection: normal respiratory effort and able to speak in complete sentences Cardio Rate: regular rate GI Inspection: Yes normal to inspection General: Yes no CVA tenderness Back/Spine/Pelvis Back: no CVA tenderness Skin General skin exam: no rashes or lesions noted Neuro General: patient oriented x3 Extrem General: Yes normal to inspection Psych Appearance: grossly normal and well kempt Mental Status: mental status grossly normal Speech and movement: Normal speech and movement present and Clear speech present Affect: normal affect Attitude: cooperative Thought process: Normal thought process present Thought content: Normal thought content present Insight: Fair insight present (Psych) Judgement: Fair judgement present (Psych) Results AMB Urinalysis, Automated UA Leukoctes 0 Rufino/uL Last Edit by JIMMIE Man on 04/19/25 13:59 UA Nitrite Negative Last Edit by JIMMIE Man on 04/19/25 13:59 UA Urobilinogen 0.2 mg/dL Last Edit by JIMMIE Man on 04/19/25 13:5 9 UA Protein 15 mg/dL Last Edit by JIMMIE Man on 04/19/25 13:59 UA pH 6.0 Last Edit by JIMMIE Man on 04/19/25 13:59 UA Blood 0 Sathya/uL Last Edit by JIMMIE Man on 04/19/25 13:59 UA Specific [place] 1.020 Last Edit by JIMMIE Man on 04/19/25 13: 59 UA Ketone Negative Last Edit by JIMMIE Man on 04/19/25 13:59 UA Bilirubin 0 mg/dL Last Edit by JIMMIE Man on 04/19/25 13:59 UA Glucose 0 mg/dL Last Edit by JIMMIE Man on 04/19/25 13:59 Results Reviewed Results Reviewed: Laboratory Last Values Urine pH (Auto) 6.0 04/19/25 13:45 Specific [place] (Auto) 1.020 04/19/25 13:45 Urine Protein (Auto) 15 mg/dL 04/19/25 13:45 Glucose (UA)(Auto) 0 mg/dL 04/19/25 13:45 Urine Ketones (Auto) Negative 04/19/25 13:45 Urine Blood (Auto) 0 Sathya/uL 04/19/25 13:45 Urine Nitrite (Auto) Negative 04/19/25 13:45 Urine Bilirubin (Auto) 0 mg/dL 04/19/25 13:45 Urine Urobilinogen (Auto) 0.2 mg/dL 04/19/25 13:45 Leukocyte Esterase (Auto) 0 Rufino/uL 04/19/25 13:45 Assessment & Plan Assessment & Plan (1) Lower urinary tract symptoms: Code(s): R39.9 - Unspecified symptoms and signs involving the genitourinary system Category: Medical (2) Feeling of incomplete bladder emptying: Code(s): R39.14 - Feeling of incomplete bladder emptying Category: Medical Plan In office urinalysis results reviewed with the patient today; as noted above. PVR 0 mL. We did discussed potential causes of variable lower urinary tract symptoms patient continues to experience We discussed further treatment options and risks and benefits of these treatment options JOSÉ was offered however deferred. Start Bactrim, moment, and prednisone as discussed and prescribed. We discussed bladder triggers/irritants. We discussed importance of continuing adequate hydration relation to lower urinary tract symptoms as well as overall health and well-being. We discussed potential near future in office cystoscopy and or urodynamics if symptoms persist and/or worsen. We discussed prostate massage. All questions were answered. Follow-up in 1-3 months with PVR; or sooner with any issues, concerns, and or questions. Orders: Orders AMB Urinalysis Automated Today Z13.9 - Encounter for screening, unspecified Medications: New sulfamethoxazole-trimethoprim 800-160 mg (Bactrim DS) 1 tab PO BID 28 tabs 0RF 14 days N39.0 - Urinary tract infection, site not specified prednisone 20 mg PO DAILY 5 tabs 0RF 5 days N20.0 - Calculus of kidney meloxicam 15 mg PO DAILY 30 tabs 0RF 30 days R10.31 - Right lower quadrant pain, R10.32 - Left lower quadrant pain Discontinued alfuzosin ER Take before bedtime Discontinued Reason: Doctor's Order 10 mg PO BEDTIME 30 tabs 3RF 30 days N32.0 - Bladder-neck obstruction, N40.1 - Benign prostatic hyperplasia with lower urinary tract symptoms, R33.9 - Retention of urine, unspecified, R35.1 - Nocturia, R39.12 - Poor urinary stream Patient Instructions: The patient had an opportunity to ask questions regarding the treatment plan. All questions were answered. Physical exam, labs, and imaging were discussed and reviewed in detail. As well as risks, benefits, and discussion of treatment choices. No major barriers to understanding were identified. The patient expressed understanding and agreement with the above treatment plan. The patient was made aware they should contact our office by phone for worsening of their current condition, the appearance of new symptoms, or with any questions or concerns. Compliance is encouraged with any medications and follow up testing that is ordered. It is a privilege to be allowed the opportunity to participate in? your urological care.? Again, if you have any questions or concerns If you have any questions or concerns please do not hesitate to contact me. The office is [phone]. This note is constructed using voice recognition software. While every effort has been made to ensure accuracy plant and equipment worker errors may have been included. Yours sincerely, ANIL Madison Coding Level of Care Code Est Pt Level 4 (51183) Add On Problem Visit Only Diagnoses Lower urinary tract symptoms R39.9 Feeling of incomplete bladder emptying R39.14
== END 2025-04-19 14:19 | disposition home or self-care (01) ==
PROVIDERS: Visit Provider Nurse Practitioner Family
DX: R39.9 Unspecified symptoms and signs involving the genitourinary system (principal); R39.14 Feeling of incomplete bladder emptying; Z13.9 Encounter for screening, unspecified
CPT/HCPCS: 99214

== ENCOUNTER → 2025-04-19 13:33 | Outpatient (BNVA) | payer OTHER, SELFPAY | PROVIDERS: Visit Provider Nurse Practitioner Family | DX: N39.0 Urinary tract infection, site not specified (principal); N20.0 Calculus of kidney; R39.14 Feeling of incomplete bladder emptying; R10.31 Right lower quadrant pain; R10.32 Left lower quadrant pain | CPT/HCPCS: 81003 ==